=== PATIENT | female | born 1995 | race Caucasian/White ===

== ENCOUNTER 2020-11-12 11:02 | Emergency (ER) | payer OTHER, SELFPAY ==
[2020-11-12 11:08] VITALS: BP 143/87; PULSE 99; RESP 18; TEMP 36.2; O2SAT 99; BMI 34.9
[2020-11-12 11:13] VITALS: BP 134/85; PULSE 80; RESP 18; O2SAT 95
--- NOTE | 2020-11-12 11:13 | ED_ITS ---
HPI - Female Genitourinary General: Chief complaint: Urogenital-Female Stated complaint: UTI/ BLOOD IN URINE Time Seen by Provider: 11/12/20 11:07 History of Present Illness: MD elicited complaint: dysuria, UTI and back pain (lower) Onset (ago): hour(s) (2-3) Location of symptoms: urethra Severity: moderate Female Urogenital Radiation: Suprapubic Severity scale (1-10): 4 Quality of pain: burning, aching and other (sharp with urination) Consistency: constant Urinary symptoms: Dysuria, Frequency, Hematuria and Urgency Exacerbating factors: other (needing to urinate) Relieving factors: other (after urination) Associated symptoms: Reports nausea; Deny abdominal pain or headache(s) Treatment prior to arrival: none Sexual activity: Yes Patient : No Review of Systems General: Reports: 10 or more systems reviewed and unremarkable except in HPI and below Const: Denies: fever(s), chills or diaphoresis Eyes: Denies: blurry vision or eye redness ENMT: Denies: throat pain, dental pain or disequilibrium Card: Denies: chest pain, palpitations or irregular heart rhythm Resp: Denies: dyspnea, productive cough, non-productive cough or wheezing GI: Reports: nausea; Denies: abdominal pain, vomiting, hematemesis, diarrhea or constipation : Reports: difficulty voiding, dysuria, urinary frequency, urinary urgency and hematuria (started last pm without pain); Denies: metrorrhagia Musc: Denies: neck pain, back pain, muscle cramps or muscle weakness Skin/Breast: Denies: rash or pruritus Neuro: Denies: headache(s), weakness in extremities or behavioral changes Psych: Denies: anxiety or depression Darrion/Lymph: Denies: easy bruising Physical Exam Const: COMMON NORMALS: no acute distress, patient oriented x3, healthy appearing, alert and well nourished GENERAL APPEARANCE: cooperative, well kempt, well developed and well hydrated; not comfortable ORIENTATION/CONSCIOUSNESS: Yes awake, Yes oriented to person, Yes oriented to place and Yes oriented to time HENMT: COMMON NORMALS: normocephalic, Normal external nose present and moist oral mucous membranes HEAD & SCALP: normocephalic NOSE: Normal external nose present Eye: COMMON NORMALS: Equal, round and reactive pupils present and EOMs intact bilaterally GENERAL EYE: appearance normal, both eyes and all related structures PUPIL: Yes Equal, round and reactive pupils present Neck/C-Spine: COMMON NORMALS: full ROM and no lymphadenopathy GENERAL: Yes normal visual inspection and Yes trachea midline CERVICAL SPINE: Yes cervical ROM normal Lymph: LYMPHATIC: no lymphadenopathy noted Chest: COMMONS NORMALS: normal inspection of the chest Resp: COMMON NORMALS: normal respiratory effort and clear to auscultation bilaterally AUSCULTATION: clear to auscultation bilaterally Cardio: COMMON NORMALS: regular rhythm, S1 normal heart sound present and S2 normal heart sound present RHYTHM: regular rhythm HEART SOUNDS: S1 normal heart sound present and S2 normal heart sound present GI: COMMON NORMALS: Soft to palpation and non-tender INSPECTION: Yes normal to inspection PALPATION: Yes Soft to palpation : COMMON NORMALS: Yes no CVA tenderness BLADDER/KIDNEY EXAM: Yes no CVA tenderness Back/Pelvis: COMMON NORMALS: no CVA tenderness and thoracic and lumbar spine normal to inspection Extremity: COMMON NORMALS: normal to inspection and capillary refill normal Neuro: COMMON NORMALS: patient oriented x3 and no focal motor deficits SENSORIUM/ORIENTATION: Yes alert, Yes oriented to person, Yes oriented to place and Yes oriented to time Psych: COMMON NORMALS: mental status grossly normal, Normal thought process present and cooperative APPEARANCE: Yes well kempt ACTIVITY/MOTOR BEHAVIOR: Yes appropriate eye contact THOUGHT PROCESS: Normal thought process present Skin: COMMON NORMALS: no rashes or lesions noted and turgor normal GENERAL SKIN EXAM: no rashes or lesions noted and turgor normal Course Vital Signs: Vital signs: Vital Signs Temperature 97.2 F L 11/12/20 11:08 Pulse Rate 70 11/12/20 13:52 Respiratory Rate 16 11/12/20 13:52 Blood Pressure 116/65 11/12/20 13:52 Pulse Oximetry 99 11/12/20 13:52 MDM - Female Lab Data: Labs: Lab Results 11/12/20 11/12/20 Range/Units 11:47 11:47 Urine Color Kendal (Yellow) Urine Appearance Cloudy (CLEAR) Urine pH 8 H (5-7) Ur Specific Gravit y 1.010 (1.005-1.030) Urine Protein 1+ H (Negative) Urine Glucose (UA) Norm (Normal) Urine Ketones Negative (Negative) Urine Blood 3+ H (Negative) Urine Nitrate Positive H (Negative) Urine Bilirubin Neg (Negative) Prot Sulfosalicyli c Acd Positive (Negative) Urine Urobilinogen Norm (Negative) mg/dL Ur Leukocyte Joi ase 2+ H (Negative) Urine RBC >100 H (0-2) /hpf Urine WBC Too numerous to c nt H (0-5) /hpf Ur Squamous Epith Cells 5-10 H (0-5) /hpf Amorphous Sediment Not Reportable Urine Bacteria 2+ H (NONE) /hpf Urine HCG, Qual Negative (Negative) Discharge Plan Discharge Patient Disposition: Home Clinical Impression: Urinary tract infection Qualifiers: Urinary tract infection type: acute cystitis Hematuria presence: with hematuria Qualified Code(s): N30.01 - Acute cystitis with hematuria Condition: Stable Prescriptions: New Bactrim DS 800-160 mg tablet 1 tab PO BID 5 Days Qty: 10 RF: 0 Zofran 4 mg tablet 4 mg PO Q4H Qty: 10 RF: 0 Pyridium 200 mg tablet 200 mg PO Q8H PRN (Reason: urinary pain) Qty: 10 RF: 0 No Action Vitamin B-12 500 mcg Tablet 500 mcg PO DAILY@08 RF: 0 cranberry extract 250 mg Tablet 250 mg PO DAILY@08 RF: 0 28 mg iron- 800 mcg Tablet 1 tab PO DAILY@08 RF: 0 Discharge Orders: Discharge ED (Routine); Ordered 11/12/20 Ordered By: Vandana Aceves Discharge Diet: Usual diet Discharge Activity: Resume usual activity Patient Instructions: Phenazopyridine (By mouth), Urinary Tract Infection in Women (ED), Dysuria (ED) Activity Restrictions/Additional Instructions: Take Bactrim with full glass of water and with food Return to the emergency department if you develop worsening abdominal pain, vomiting or fever Take Bactrim until all gone, even if feeling better Take Pyridium with food, will cause stomach upset/vomiting if taken on empty stomach Coding Level of Care Code ED Analog Ic Design Architect for Kyree Fwjose david Exam Comprehensive
[2020-11-12] MEDS: HYDROcodone-acetaminophen 5-325 mg Tablet 1 TAB PO (11:28)
[2020-11-12] MEDS: ondansetron 4 MG Tablet PO (11:28)
[2020-11-12 12:11] LABS: Urine Appearance Cloudy (CLEAR); Urine Color Amber (Yellow); pH Urine 8 (5-7)
[2020-11-12 12:12] LABS: Glucose Urine UA Norm (Normal); Ketones Urine Negative (Negative); Protein Urine 1+ (Negative)
[2020-11-12 12:13] LABS: Add Urine Culture? Yes; Add Urine Microscopic? YES; Bacteria Urine 2+ /hpf; Bilirubin Urine Neg (Negative); Blood Urine 3+ (Negative); Leukocyte Esterase Urine 2+ (Negative); Nitrate Urine Positive (Negative); RBC Urine >100 /hpf (0-2); Sulfosalicylic Acid Urine Positive (Negative); Urobilinogen Urine Norm (Negative); WBC Urine TOO NUMEROUS TO CNT /hpf (0-5)
[2020-11-12] MEDS: sulfamethoxazole-trimeth DS 160-800 mg Tablet 1 TAB PO (12:51)
[2020-11-12 13:52] VITALS: BP 116/65; PULSE 70; RESP 16; O2SAT 99
== END 2020-11-12 13:54 | disposition home or self-care (01) ==
PROVIDERS: Emergency Provider Nurse Practitioner Family
DX: N30.01 Acute cystitis with hematuria (principal)
CPT/HCPCS: 12345; 81001; 81025; 87077; 87086; 87186; 99281; 99283; Q0162

== ENCOUNTER 2021-12-01 09:41 | Outpatient (CLI) | payer OTHER, SELFPAY ==
[2021-12-01 10:36] LABS: Thyroid Stimulating Hormone 3.95 uIU/mL (0.27-4.20)
[2021-12-02 07:44] LABS: T4 Total 8.5 mcg/dL (5.1-11.9)
[2021-12-04 13:22] LABS: Thyroid Peroxidase Antobodies 1 IU/mL (<9)
[2021-12-04 14:26] LABS: Thyroglobulin AB <1 IU/mL (< or = 1)
== END 2021-12-01 09:42 | disposition home or self-care (01) ==
PROVIDERS: Visit Provider Internal Medicine
DX: E07.9 Disorder of thyroid, unspecified (principal)
CPT/HCPCS: 36415; 84436; 84443; 86376; 86800

== ENCOUNTER → 2021-12-14 08:11 | Outpatient (BNVA) | payer OTHER, SELFPAY | PROVIDERS: Visit Provider Nurse Practitioner Women's Health | DX: N92.6 Irregular menstruation, unspecified (principal) | CPT/HCPCS: 81025 ==

== ENCOUNTER → 2022-01-09 10:38 | Outpatient (BNVA) | payer OTHER, SELFPAY | PROVIDERS: Visit Provider Obstetrics & Gynecology | DX: Z34.90 Encounter for supervision of normal pregnancy, unspecified, unspecified trimester (principal) | CPT/HCPCS: 80053; 80307; 82950; 84315; 84443; 85027; 86592; 86762; 86803; 86850; 86900; 87086; 87340; 87806 ==

== ENCOUNTER → 2022-01-10 08:00 | Outpatient (BNVA) | payer OTHER, SELFPAY | PROVIDERS: Visit Provider Obstetrics & Gynecology | DX: O99.019 Anemia complicating pregnancy, unspecified trimester (principal) | CPT/HCPCS: 82607; 82728; 82746; 83550 ==

== ENCOUNTER → 2022-01-23 09:30 | Outpatient (BNVA) | payer OTHER, SELFPAY | PROVIDERS: Visit Provider Obstetrics & Gynecology | DX: Z34.80 Encounter for supervision of other normal pregnancy, unspecified trimester (principal) | CPT/HCPCS: 84315; 87491; 87591 ==

== ENCOUNTER → 2022-03-22 08:10 | Outpatient (BNVA) | payer OTHER, SELFPAY | PROVIDERS: Visit Provider Obstetrics & Gynecology | DX: Z36.89 Encounter for other specified antenatal screening (principal) | CPT/HCPCS: 76805 ==

== ENCOUNTER → 2022-03-27 08:57 | Outpatient (BNVA) | payer OTHER, SELFPAY | PROVIDERS: Visit Provider Obstetrics & Gynecology | DX: Z34.90 Encounter for supervision of normal pregnancy, unspecified, unspecified trimester (principal) | CPT/HCPCS: 84315; 84443; 85027 ==

== ENCOUNTER → 2022-05-15 09:56 | Outpatient (BNVA) | payer OTHER, SELFPAY | PROVIDERS: Visit Provider Obstetrics & Gynecology | DX: Z34.90 Encounter for supervision of normal pregnancy, unspecified, unspecified trimester (principal) | CPT/HCPCS: 82950; 84315; 84443; 85027; 86850 ==

== ENCOUNTER 2022-05-18 06:02 | Outpatient (CLI) | payer OTHER, SELFPAY ==
--- NOTE | 2022-05-18 06:15 | US_ITS ---
WS: [id number] ULTRASOUND OB FOCUSED HISTORY: O40.9XX0 - Polyhydramnios, unspecified trimester, not tanna... COMPARISON: 03/22/2022 Single intrauterine gestation in vertex position. Cervix is closed at approximately 4 cm in length. P lacenta is posterior and grade 1. heart rate at 122 BPM. Amniotic fluid index: 17.3 cm which is just above the 50th percentile. Largest vertical pocket of amn iotic fluid 5.1 cm. US/US OB limited [id number] IMPRESSION: Normal amniotic fluid index of 17.3 cm.
== END 2022-05-18 06:03 | disposition home or self-care (01) ==
LOC: RAD 06:03
PROVIDERS: Visit Provider Obstetrics & Gynecology
DX: O40.9XX0 Polyhydramnios, unspecified trimester, not applicable or unspecified (principal)
CPT/HCPCS: 76815

== ENCOUNTER 2022-05-28 18:23 | Outpatient (CLI) | payer OTHER, SELFPAY ==
[2022-05-28 18:30] VITALS: BMI 38.3
[2022-05-28 18:38] VITALS: BP 129/63; PULSE 100
[2022-05-28 18:41] VITALS: TEMP 36.4
[2022-05-28 18:58] VITALS: BP 116/66; PULSE 105
[2022-05-28 19:13] VITALS: RESP 16
[2022-05-28 19:18] VITALS: BP 120/70; PULSE 103
[2022-05-28 19:38] VITALS: BP 126/71; PULSE 100
[2022-05-28 19:54] LABS: Bacteria Urine 2+ /hpf; Bilirubin Urine Neg (Negative); Blood Urine Neg (Negative); Glucose Urine UA Norm (Normal); Ketones Urine Negative (Negative); Leukocyte Esterase Urine Negative (Negative); Nitrate Urine Negative (Negative); Protein Urine Neg (Negative); RBC Urine 0-4 /hpf (0-2); Squamous Epithelial Cell Urine 0-4 /hpf (0-5); Urine Appearance Clear (CLEAR); Urine Color Yellow (Yellow); Urobilinogen Urine Norm (Negative); WBC Urine 0-4 /hpf (0-5); pH Urine 6 (5-7)
[2022-05-28 19:55] LABS: Add Urine Culture? Yes
== END 2022-05-28 20:08 | disposition home or self-care (01) ==
LOC: OPOB 18:23 → OBGYN 18:24
PROVIDERS: Visit Provider Obstetrics & Gynecology
DX: O26.899 Other specified pregnancy related conditions, unspecified trimester (principal); Z3A.00 Weeks of gestation of pregnancy not specified; R10.9 Unspecified abdominal pain
CPT/HCPCS: 59025; 81001; 87086; 99211

== ENCOUNTER → 2022-06-25 13:50 | Outpatient (BNVA) | payer OTHER, SELFPAY | PROVIDERS: Visit Provider Obstetrics & Gynecology | DX: Z36.86 Encounter for antenatal screening for cervical length (principal) | CPT/HCPCS: 76816 ==

== ENCOUNTER → 2022-07-10 09:38 | Outpatient (BNVA) | payer OTHER, SELFPAY | PROVIDERS: Visit Provider Obstetrics & Gynecology | DX: Z34.90 Encounter for supervision of normal pregnancy, unspecified, unspecified trimester (principal) | CPT/HCPCS: 84315; 87081 ==

== ENCOUNTER 2022-07-28 07:29 | Inpatient (IN) | payer OTHER, SELFPAY ==
[2022-07-28] VITALS (89 sets, daily range): BP systolic 108–150; BP diastolic 56–104; PULSE 73–115; RESP 15–18; TEMP 35.8–37.4; O2SAT 81–100; BMI 38.8
[2022-07-28 07:34] LABS: Basophils # 0.2 10^3/uL (0.0-0.1); Basophils % 1.4 %; Eosinophils # 0.8 10^3/uL (0.0-0.8); Eosinophils % 6.7 %; Hematocrit 34.6 % (37.0-47.0); Hemoglobin 11.6 g/dL (11.5-15.3); Lymphocytes % 16.3 %; Mean Corpuscular HGB Conc 33.5 g/dL (30.0-36.0); Mean Corpuscular Volume 95.3 fl (81-99); Mean Platelet Volume 9.9 fL (7.4-10.4); Monocytes % 8.5 %; Neutrophils # 7.89 10^3/uL (1.8-7.7); Neutrophils % 65.8 %; Nucleated Red Blood Cells % 0 %; Platelet Count 277 10^3/cmm (130-400); Red Blood Count 3.63 10^6/uL (4.1-5.3); Red Cell Distribution Width 13.3 % (12.1-15.1)
[2022-07-28 08:24] LABS: Estmated Average Glucose 114; Hemoglobin A1C 5.6 % (4.0-6.0)
[2022-07-28] MEDS: miSOPROStol 100 mcg tablet 50 MCG PO (12:41)
--- NOTE | 2022-07-28 13:30 | P.HPUD_ITS ---
Labor & Delivery H&P Update Date of Procedure: July 28, 2022 Date H&P Performed: 07/28/22 Changes to previous documentation: Yeimy is a 27-year-old 000 who is accompanied by her partner, Kirby. This gestation is complicated by class II obesity, hypothyroidism, depression, anxiety disorder, nicotine dependence, chronic anemia, polyhydramnios, and Rh- status. GBS negative. HOSPITAL COURSE She was admitted early this morning after experiencing gross PROM at ~0415. Upon examination she was found to be 3 cm dilated and was deemed to be in early labor however as the morning progressed her uterine contractions were going to be far and few between. Her initial plan was to avoid induction/augmentation and to avoid medicinal pain medication for labor. Since arrival has received 1 dose of oral misoprostol, 50 mcg. Endorses painful uterine contractions, endorses continued loss of fluid without vaginal bleeding, denies headache, denies right upper quadrant pain, denies visual changes, and appreciates regular movement Admission Diagnosis: * IUP 38W4D * PROM * Chronic anemia * Class II obesity * Hypothyroidism * Depression and anxiety disorder * Rh- status Preop diagnosis: labor pain Primary indication for procedure: Status post PROM and is now in early labor. Planned procedure: Anticipate Other information: Category 1 heart tone tracing
[2022-07-28] MEDS: fentaNYL 50 mcg/mL INJ 2mL 100 MCG IVP (14:07)
[2022-07-28] MEDS: lactated ringers 1,000 ML 999 ML IV (14:10)
[2022-07-28] MEDS: metoclopramide 5 mg/mL SDV 2 mL 10 MG IV (14:10)
--- NOTE | 2022-07-28 15:05 | ANES.PREANE2 ---
Pre-Anesthetic Assessment Height/Weight: Height 1.7 m Weight 112.491 kg Temp Pulse Resp BP Pulse Ox O2 Del Method 98.1 F 90 18 140/75 99 07/28/22 13:46 07/28/22 11:40 07/28/22 14:07 07/28/22 11:40 07/28/22 06:53 07/28/22 06:50 Preop Diagnosis: labor pain epidural Familial anesthetic complications: none Was Beta Glory taken within 24 hours: N/A Was Clonidine taken within 24 hours: N/A Social Alcohol (history not current) and Tobacco (history not current) Exam alert, oriented x 3, clear to auscultation bilaterally and regular rate & rhythm Airway Submandibular: within normal limits Cervical ROM: within normal limits Mallampati: Class II Dentition: full Pulmonary None reported CV/HEM Anemia None reported Hepatic None reported GI Gastroesophageal Reflux Disease Metabolic Thyroid Disease Neuropsych Anxiety and Depression Anesthetic Plan ASA status: 2 Anesthesia: Regional (specify below) Risk of > 500 ml blood loss (7ml/kg in children): No Medications/Allergies Home Medications Medication Instructions Recorded Confirmed Last Taken Type vit no.95-ferrous 1 tab PO DAILY@08 11/12/20 07/28/22 07/27/22 History fumarate 28 mg-folic acid 800 mcg tablet () levothyroxine 25 mcg tablet 25 mcg PO DAILY #90 tabs 12/01/21 07/28/22 07/28/22 03:30 Rx famotidine 20 mg tablet (Pepcid) 20 mg PO DAILY 01/09/22 07/24/22 05/28/22 10:00 History ferrous sulfate 325 mg (65 mg 325 mg PO BID #90 tabs 03/28/22 07/28/22 07/27/22 Rx iron) tablet,delayed release sertraline 25 mg tablet (Zoloft) 25 mg PO DAILY 04/18/22 07/28/22 07/27/22 History buspirone 5 mg tablet 5 mg PO BID 05/15/22 07/28/22 07/27/22 13:00 History vitamin c PO BID 06/05/22 07/24/22 Unknown History Allergies Allergy/AdvReac Type Severity Reaction Status Date / Time Penicillins Allergy Family Verified 07/28/22 07:31 allergy---Keflex causes nausea ondansetron [From Zofran] AdvReac Severe migranes Verified 07/28/22 07:31 erythromycin base AdvReac Vomiting Verified 07/28/22 07:31 Current Medications Generic Name Dose Route Start Last Admin Trade Name Lacey PRN Reason Stop Dose Admin Fentanyl 100 mcg 07/28/22 06:44 07/28/22 14:07 Fentanyl 50 Mcg/Ml Inj 2ml IVP 100 mcg Q1H PRN Administration SEVERE PAIN PFSH Anesthesia Medical History Acute pancreatitis Episode of acute pancreatitis at the age of 17 of undiagnosed origin. She has recovered completely and has no deficits Anxiety and depression Reports being symptomatic since teenage years. Last took medication in 2017. Does not have a therapist Hypothyroid Diagnosed in November 2021 and is managed by Dr. Ruff-endocrinology No pertinent past medical history Denies diabetes, asthma, hypertension, seizures, DVT/PE PCP: None Surgical History History of tonsillectomy At the age of 16 Family History Father No problems noted. Mother Diabetes Breast cancer Diagnosed at age 35 ER and [place] [facility] Hypercholesteremia Hypertension Grandmother Uterine cancer Maternal- diagnosed in her 50s Family/Other Breast cancer Maternal aunt, diagnosed in her early 40s Mat great aunt Heart disease paternal uncle Thyroid disease maternal aunt Denies family history of Colon cancer Ovarian cancer Stroke Social History Smoking and tobacco status: former smoker Female Reproductive History : 1 Data Anesthesia : 07/28/22 07:10 Short CBC 07/28/22 Range/Units 07:10 WBC 12.0 H (4.0-10.0) 10^3/uL Hgb 11.6 (11.5-15.3) g/dL Hct 34.6 L (37.0-47.0) % MCV 95.3 (81-99) fl Plt Count 277 (130-400) 10^3/cmm Neut % (Auto) 65.8 % Neut # (Auto) 7.89 H (1.8-7.7) 10^3/uL Cardiac Studies: No Data to Display
--- NOTE | 2022-07-28 15:35 | P.ANES_ITS ---
Documented by User: José Miguel Méndez CRNA 07/28/22 15:35 Anesthesia Procedures Procedure/Date: 07/28/22 epidural Procedure Narrative: epidural complete, bolus given, epidural pump initiated with SHOP SERVICE TECHNICIAN education given, vitals taken during procedure using OBIX system and satisfactory throughout, patient admits to decrease pain, report of procedure to OB RN Epidural: Time Out Performed: Yes Consents Signed: Procedure Consent Consent: requested by attending/covering physician, from patient, risks and benefits reviewed and patient agrees to proceed Lumbar Level: L3-L4 Epidural position: sitting Epidural procedure: sterile prep of area, 1% lido anju to numb the area (3 mL), 18 g needle, negative for paresthesia passed, neg for paresthesia, test dose given, 1.5% xylocaine 1:200k epi (5 mL), 0.2% Ropivacaine bolus ml (5 mL), placed PCEA, no systemic response, sterile dressing applied, L.U.D. no apparent complications and 0.2% Ropiavacaine @ mls/hr (13 mL/hr) Documented by User: Tony Curtis 07/29/22 08:41 Anesthesia Procedures Procedure/Date: 07/29/22
--- NOTE | 2022-07-28 16:14 | P.PN_ITS ---
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 This gestation is complicated by class II obesity, hypothyroidism, depression, anxiety disorder, nicotine dependence, chronic anemia, polyhydramnios, and Rh- status. GBS negative. HOSPITAL COURSE She was admitted early this morning after experiencing gross PROM at ~0415. Upon examination she was found to be 3 cm dilated and was deemed to be in early labor however as the morning progressed her uterine contractions were going to be far and few between. Her initial plan was to avoid induction/augmentation and to avoid medicinal pain medication for labor. Since arrival has received 1 dose of oral misoprostol, 50 mcg and 1 dose of 100 mcg of fentanyl. She has had epidural placed without incident. Comfortable with uterine contractions, endorses continued loss of fluid with scant vaginal bleeding, denies headache, denies right upper quadrant pain, denies visual changes, and appreciates regular movement. Labor: Pain Control: epidural Dilation (cm): 5 (4-5 cm) Station: - 1 Amniotic Membrane Status: Ruptured Monitor Mode: External Contraction Frequency: 3 (1-3 Qmin) Contraction Pattern: Regular Status: Category I Vitals/I&O/Wt Last Vital Signs Temp 98.1 F 07/28/22 13:46 Pulse 100 07/28/22 15:31 Resp 18 07/28/22 14:07 BP 136/76 07/28/22 15:31 Pulse Ox 100 07/28/22 15:30 O2 Del Method 07/28/22 06:50 Weight last 48 hrs Weight 248 lb Physical Exam Const: COMMON NORMALS: no acute distress, patient oriented x3 and alert HENMT: COMMON NORMALS: normocephalic, atraumatic, hearing grossly normal bilaterally, moist oral mucous membranes, dentition normal and gingiva normal HEAD & SCALP: normocephalic and atraumatic Eye: COMMON NORMALS: EOMs intact bilaterally Neck/C-Spine: COMMON NORMALS: full ROM and supple Lymph: LYMPHATIC: no lymphadenopathy noted Resp: COMMON NORMALS: normal respiratory effort, No retractions and No use of accessory muscles Cardio: COMMON NORMALS: regular rate and regular rhythm RATE: regular rate RHYTHM: regular rhythm : COMMON NORMALS: Yes no CVA tenderness BLADDER/KIDNEY EXAM: Yes no CVA tenderness UTERUS PALPATION: No Uterus tender and Yes Other OB uterine findings (4-5 cm / 80% / -1 / mid / soft / Cephalic) Back/Pelvis: COMMON NORMALS: no CVA tenderness Extremity: COMMON NORMALS: normal to inspection, no clubbing, cyanosis or edema and no calf tenderness; negative for no pedal edema Neuro: COMMON NORMALS: patient oriented x3 SENSORIUM/ORIENTATION: Yes alert Psych: COMMON NORMALS: mental status grossly normal, Normal thought process present, cooperative, normal affect, speech normal and activity/motor behavior normal SPEECH: Yes normal speech THOUGHT PROCESS: Normal thought process present Skin: COMMON NORMALS: no rashes or lesions noted GENERAL SKIN EXAM: no rashes or lesions noted Data : 07/28/22 07:10 A&P Assessment and plan (1) with 38 completed weeks gestation: Status: Acute (2) Anemia affecting in third trimester: Consider IV iron in the period. Status: Acute (3) Obesity affecting , antepartum: Status: Acute (4) Rh negative, antepartum: Collect cord blood at delivery. Status: Acute (5) Hypothyroid: Status: Acute (6) Mixed anxiety and depressive disorder: Status: Acute (7) Personal history of nicotine dependence: Status: Acute (8) Alteration in comfort associated with uterine contractions: Continue to titrate epidural. Status: Acute (9) PROM (premature rupture of membranes): Now in early labor status post 1 dose of oral misoprostol. * Considering Pitocin augmentation if the contraction pattern becomes an adequate or labor progress is halted. Status: Acute Attestations Medical Necessity Statement*: SROM, management of labor, augmentation of labor, primipara with anxiety and depression disorder Coding Level of Care Code Acute Front Office Clerk for Chg Fwd Diagnoses with 38 completed weeks gestation Z3A.38 Anemia affecting in third trimester O99.013 Obesity affecting , antepartum O99.210 Rh negative, antepartum O26.899; Z67.91 Hypothyroid E03.9 Mixed anxiety and depressive disorder F41.8 Personal history of nicotine dependence Z87.891 Alteration in comfort associated with uterine contractions N85.8 PROM (premature rupture of membranes) O42.90
[2022-07-28] MEDS: oxytocin 30 UNIT/500 ML BAG IV (18:08)
--- NOTE | 2022-07-28 20:18 | PM.OBGYPN ---
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 This gestation is complicated by class II obesity, hypothyroidism, depression, anxiety disorder, nicotine dependence, chronic anemia, polyhydramnios, and Rh- status.? GBS negative. The couple is expecting a girl, Vanessa Forte. HOSPITAL COURSE She was admitted early this morning after experiencing gross PROM at ~0415.? Upon examination she was found to be 3 cm dilated and was deemed to be in early labor however as the morning progressed her uterine contractions were going to be far and few between.? Her initial plan was to avoid induction/augmentation and to avoid medicinal pain medication for labor. Since arrival has received 1 dose of oral misoprostol, 50 mcg and 1 dose of 100 mcg of fentanyl.? She has had epidural placed without incident. Currently undergoing Pitocin augmentation which is infusing at 2 milliunits/min. Augmentation was initiated secondary to slow progress into active labor. I received a call at 1945 that there was a deceleration and upon checking her it was communicated that she was anterior lip so appeared to make rapid progress. Comfortable with uterine contractions albeit experiencing significant pressure, endorses continued loss of fluid with light vaginal bleeding, denies headache, denies right upper quadrant pain, denies visual changes, and appreciates regular movement. Labor: Dilation (cm): 9 (Anterior lip) Station: -2 Amniotic Membrane Status: Leaking Monitor Mode: External Contraction Frequency: 3 (1-3 Qmin) Contraction Pattern: Regular Status: Category I (albeit rarely Category II) Vitals/I&O/Wt Last Vital Signs Temp 99.3 F 07/28/22 18:05 Pulse 97 07/28/22 20:11 Resp 18 07/28/22 14:07 BP 139/79 07/28/22 20:02 Pulse Ox 98 07/28/22 20:11 O2 Del Method 07/28/22 06:50 07/28/22 07/28/22 07/28/22 06:59 14:59 22:59 Intake Total 1000 / 1000 Balance 1000 / 1000 Weight last 48 hrs Weight 248 lb Physical Exam Const: COMMON NORMALS: no acute distress and alert : UTERUS PALPATION: Yes Other OB uterine findings (Anterior lip/100%/0 to +1/anterior/cephalic) AMNIOTIC FLUID: clear and no meconium Neuro: SENSORIUM/ORIENTATION: Yes alert Psych: COMMON NORMALS: mental status grossly normal, Normal thought process present, cooperative, normal affect, speech normal and activity/motor behavior normal SPEECH: Yes normal speech THOUGHT PROCESS: Normal thought process present Urinary Catheter Management: Queen: Cath Placed During This Visit: yes Reason for Continuing Indwelling Catheter: Required Immobilization for Trauma or Surgery or Anesthesia Urinary Catheter Date of Insertion: 07/28/22 Urinary Catheter Time of Insertion: 16:45 Data : 07/28/22 07:10 A&P Assessment and plan (1) PROM (premature rupture of membranes): Continue to titrate Pitocin augmentation Status: Acute (2) Alteration in comfort associated with uterine contractions: Continue to titrate epidural and encourage position changes Status: Acute (3) Mixed anxiety and depressive disorder: Status: Acute (4) with 38 completed weeks gestation: Status: Acute (5) Anemia affecting in third trimester: Considering Venofer (IV iron) Status: Acute (6) Class II obesity: Status: Acute Attestations Medical Necessity Statement*: Labor management, PROM, care, anemia Coding Level of Care Code Acute Flatwork Finisher for Chg Fwd Diagnoses PROM (premature rupture of membranes) O42.90 Alteration in comfort associated with uterine contractions N85.8 Mixed anxiety and depressive disorder F41.8 with 38 completed weeks gestation Z3A.38 Anemia affecting in third trimester O99.013 Class II obesity E66.9
[2022-07-28] MEDS: dextrose 5%-lactated ringers 1,000 ML 125 ML IV (20:45)
[2022-07-28] MEDS: metoclopramide 5 mg/mL SDV 2 mL 10 MG IVP (21:15)
--- NOTE | 2022-07-28 23:17 | P.PCNOB_ITS ---
Delivery Note: Date of delivery: July 28, 2022 Pre-delivery diagnoses: * IUP 38W4D * Premature rupture of membranes (PROM) * Chronic anemia * Class II obesity * Hypothyroidism * Depression and anxiety disorder Post-delivery diagnoses: * Status post term without complications * Chronic anemia * Class II obesity * Hypothyroidism * Depression and anxiety disorder Procedure: Term normal spontaneous vaginal delivery () Delivering Physician: Matilda Eng MD, FACOG Findings: Viable female infant, Vanessa Forte. * scores: 8 at one minute and 9 at five minutes * Weight: 3220 g ( 8 lbs 3 oz ) * Delivered on 07/28/2022 at 2224 Pre-Delivery Course: Yeimy is a 27-year-old 001 who presented to the hospital with an IUP 38W4D. She is accompanied by her partner,Ellyn.? This gestation is complicated by class II obesity, hypothyroidism, depression, anxiety disorder, nicotine dependence, chronic anemia, polyhydramnios, and Rh- status.? GBS negative. The couple was expecting a girl,Citlali Forte. HOSPITAL COURSE She was admitted early this morning after experiencing gross PROM at ~0415.? Upon examination she was found to be 3 cm dilated and was deemed to be in early labor however as the morning progressed her uterine contractions were going to be far and few between.? Aftr arrival to L & D received epidural without incident, had Pitocin augmentation which was initiated secondary to slow progress into active labor.? Delivery: Upon achieving complete dilation, +3 station, and experiencing extreme pressure patient was placed in modified Dez position. She was instructed on pushing and she pushed very effectively. With coaching the patient pushed and brought the 's head to the perineum. The perineum appeared adequate. The patient pushed again and the head crowned and the MIRTHA position. The anterior shoulder was delivered with a downward motion, the posterior shoulder delivered with an upward motion, and the remainder of the infant's body delivered without any difficulty. Terminal meconium was appreciated. cried spontaneously and was placed on the mother's abdomen and resuscitated by the nurse. Delayed cord clamping was performed. Cord blood was obtained. Pitocin was administered and the placenta delivered spontaneously and was found to be intact and complete with a centrally inserted three-vessel cord. Post-Delivery Status: [place] infant, Vanessa Forte, is rooming in with her parents. Breast-feeding anticipated. History History History 1 Term 1 0 Miscarriages/Ectopic 0 Living Children 0 A&P Assessment and plan (1) Class II obesity: Status: Acute (2) (normal spontaneous vaginal delivery): Status: Acute (3) Liveborn infant as result of : Status: Acute (4) Anemia affecting in third trimester: Prescribe IV iron (Venofer) Status: Acute (5) Care and examination immediately after delivery: Initiate routine care Status: Acute Coding Level of Care Code Acute Beam Racker for Chg Fwd Diagnoses Class II obesity E66.9 (normal spontaneous vaginal delivery) O80 Liveborn infant as result of Z37.0 Anemia affecting in third trimester O99.013 Care and examination immediately after delivery Z39.0
[2022-07-29] VITALS (20 sets, daily range): BP systolic 125–161; BP diastolic 62–85; PULSE 61–90; RESP 16–18; TEMP 36.7–36.9; O2SAT 99
[2022-07-29] MEDS: lidocaine 2% INJ 20 mL INJECTION (02:42)
--- NOTE | 2022-07-29 08:42 | ANE.PACU2 ---
Inpatient post-anesthesia follow up: Airway intact: Yes Vital signs: Temperature 98.5 F Pulse Rate 80 Respiratory Rate 17 Blood Pressure 139/83 Pulse Oximetry 98 Oxygen Delivery Me thod Room Air Oxygen Flow Rate Fraction of Inspir ed Oxygen Hydration adequate: Yes Nausea and vomiting: No Pain level: 2 Mental status: Baseline
--- NOTE | 2022-07-29 08:56 | P.PN_ITS ---
Subjective Subjective: Yeimy is a 27-year-old 001 who presented to the hospital with an IUP 38W4D.? She is accompanied by her partner,?Kirby.? This gestation is complicated by class II obesity, hypothyroidism, depression, anxiety disorder, nicotine dependence, chronic anemia, polyhydramnios, and Rh- status.? GBS negative. The couple was expecting a girl,Citlali Forte. HOSPITAL COURSE She was admitted level vial marker on 07/28/2022 after experiencing gross PROM at ~0415.? Upon examination she was found to be 3 cm dilated. After arrival to L & D she received an epidural without incident, had Pitocin augmentation which was initiated secondary to slow progress into active labor.?Ultimately, went on to have a term normal spontaneous vaginal delivery () without complications. Viable female infant,Citlali Forte. * scores:?8 at one minute and 9 at five minutes * Weight:?3220 g ( 8 lbs 3 oz ) * Delivered on 07/28/2022 at 2224 Vitals/I&O/Wt Selected Entries 07/29/22 06:49 07/29/22 07:16 07/29/22 07:46 Temperature Pulse Rate 64 61 69 Blood Pressure 130/85 132/82 161/79 07/29/22 08:16 07/29/22 09:16 07/29/22 09:41 Temperature Pulse Rate 80 76 82 Blood Pressure 139/83 129/67 136/80 07/28/22 21:11 Temperature 98.5 F Pulse Rate Blood Pressure 07/28/22 07/29/22 07/29/22 22:59 06:59 14:59 Intake Total 1000 / 1000 Output Total 950 / 950 Balance 1000 / 1000 -950 / 50 Weight last 48 hrs Weight 248 lb Physical Exam Const: COMMON NORMALS: no acute distress, patient oriented x3, no limitations, healthy appearing and alert HENMT: COMMON NORMALS: normocephalic and atraumatic HEAD & SCALP: normocephalic and atraumatic Chest: COMMONS NORMALS: normal inspection of the chest and normal inspection of the breasts Resp: COMMON NORMALS: normal respiratory effort, No retractions and No use of accessory muscles Cardio: COMMON NORMALS: regular rate and regular rhythm RATE: regular rate RHYTHM: regular rhythm GI: COMMON NORMALS: Soft to palpation and non-tender PALPATION: Yes Soft to palpation : COMMON NORMALS: Yes no CVA tenderness BLADDER/KIDNEY EXAM: Yes no CVA tenderness Back/Pelvis: COMMON NORMALS: no CVA tenderness OTHER: Firm uterine fundus at the umbilicus Extremity: COMMON NORMALS: normal to inspection, full ROM, capillary refill normal and no calf tenderness Neuro: COMMON NORMALS: patient oriented x3 SENSORIUM/ORIENTATION: Yes alert Psych: COMMON NORMALS: mental status grossly normal, Normal thought process present, cooperative, normal affect, speech normal and activity/motor behavior normal SPEECH: Yes normal speech THOUGHT PROCESS: Normal thought process present Skin: COMMON NORMALS: no rashes or lesions noted and turgor normal GENERAL SKIN EXAM: no rashes or lesions noted and turgor normal Urinary Catheter Management: Queen: Cath Placed During This Visit: yes, but has since been removed by the nurse Reason for Continuing Indwelling Catheter: Decision to DC Catheter Urinary Catheter Date of Insertion: 07/28/22 Urinary Catheter Time of Insertion: 16:45 Date Urinary Catheter Removed: 07/28/22 Time Urinary Catheter Discontinued: 21:43 Data : 07/28/22 07:10 A&P Assessment and plan (1) Care and examination immediately after delivery: * Continue routine care * Anticipate discharge tomorrow Status: Acute (2) (normal spontaneous vaginal delivery): Status: Acute (3) Class II obesity: Status: Acute Attestations Medical Necessity Statement*: day #1 Coding Level of Care Code Acute Home Health Outreach Coordinator for Chg Fwd Diagnoses Care and examination immediately after delivery Z39.0 (normal spontaneous vaginal delivery) O80 Class II obesity E66.9
[2022-07-29 13:19] LABS: Hematocrit 30.8 % (37.0-47.0); Hemoglobin 10.3 g/dL (11.5-15.3); Mean Corpuscular HGB Conc 33.4 g/dL (30.0-36.0); Mean Corpuscular Hemoglobin 32.1 pg (28.0-34.0); Mean Platelet Volume 9.8 fL (7.4-10.4); Platelet Count 245 10^3/cmm (130-400); Red Blood Count 3.21 10^6/uL (4.1-5.3); Red Cell Distribution Width 13.5 % (12.1-15.1); White Blood Count 19.2 10^3/uL (4.0-10.0)
[2022-07-30 04:10] VITALS: BP 138/89; PULSE 67; TEMP 36.6; O2SAT 98
--- NOTE | 2022-07-30 07:03 | P.DS_ITS ---
Discharge Providers Date of Admission: 07/28/22 07:29 Date of Discharge: July 30, 2022 Attending Provider at Admission: Matilda Eng MD Attending Provider at Discharge: Matilda Eng MD Diagnoses at Discharge Discharge Diagnosis (1) Care and examination immediately after delivery: Details from hospital stay: Yeimy is a 27-year-old 001 PPD #2 who presented to the hospital with an IUP 38W4D.? She is accompanied by her partner,?Kirby.? This gestation is complicated by class II obesity, hypothyroidism, depression, anxiety disorder, nicotine dependence, chronic anemia, polyhydramnios, and Rh- status.? GBS negative. The couple was expecting a girl,Citlali Forte. HOSPITAL COURSE She was admitted screening unit registered nurse on 07/28/2022 after experiencing gross PROM at ~0415.? Upon examination she was found to be 3 cm dilated. After arrival to L & D she received an epidural without incident, had Pitocin augmentation which was initiated secondary to slow progress into active labor.?Ultimately, went on to have a term normal spontaneous vaginal delivery () without complications. Viable female infant,Citlali Forte who is doing well and is breast-feeding. * scores:?8 at one minute and 9 at five minutes * Weight:?3220 g ( 8 lbs 3 oz ) * Delivered on 07/28/2022 at 2224 Today, reports light vaginal bleeding/lochia, denies headache, denies right upper quadrant pain, denies visual changes, is ambulating without any dizziness, is tolerating p.o. intake, and is voiding without any difficulty. Despite history of depression and anxiety disorder Yeimy has no emotional concerns at this time. She has asked for discharge today and has met all milestones. Status: Acute (2) (normal spontaneous vaginal delivery): Status: Acute (3) Class II obesity: Status: Acute Reason for Visit Reason for Visit: Possible ROM Physical Exam Const: COMMON NORMALS: no acute distress, patient oriented x3, healthy appearing and alert HENMT: COMMON NORMALS: normocephalic and atraumatic HEAD & SCALP: normoce phalic and atraumatic Eye: COMMON NORMALS: EOMs intact bilaterally Resp: COMMON NORMALS: normal respiratory effort and No use of accessory muscles GI: COMMON NORMALS: Soft to palpation and non-tender PALPATION: Yes Soft to palpation : BLADDER/KIDNEY EXAM: No CVA tenderness UTERUS PALPATION: No Uterus tender and Yes Other OB uterine findings (Firm fundus 2 fingerbreadths below the umbilicus) Back/Pelvis: GENERAL BACK: No CVA tenderness Extremity: COMMON NORMALS: normal to inspection, full ROM and no calf tenderness Neuro: COMMON NORMALS: patient oriented x3 SENSORIUM/ORIENTATION: Yes alert Psych: COMMON NORMALS: mental status grossly normal, cooperative, normal affect, speech normal and activity/motor behavior normal SPEECH: Yes normal speech Skin: COMMON NORMALS: no rashes or lesions noted and turgor normal GENERAL SKIN EXAM: no rashes or lesions noted and turgor normal Urinary Catheter Management: Queen: Cath Placed During This Visit: yes, but has since been removed by the nurse Reason for Continuing Indwelling Catheter: Decision to DC Catheter Urinary Catheter Date of Insertion: 07/28/22 Urinary Catheter Time of Insertion: 16:45 Date Urinary Catheter Removed: 07/28/22 Time Urinary Catheter Discontinued: 21:43 Discharge Data Studies Completed and Pending Laboratory Results WBC 19.2 10^3/uL (4.0-10.0) H 07/29/22 13:05 RBC 3.21 10^6/uL (4.1-5.3) L 07/29/22 13:05 Hgb 10.3 g/dL (11.5-15.3) L 07/29/22 13:05 Hct 30.8 % (37.0-47.0) L 07/29/22 13:05 MCV 96.0 fl (81-99) 07/29/22 13:05 MCH 32.1 pg (28.0-34.0) 07/29/22 13:05 MCHC 33.4 g/dL (30.0-36.0) 07/29/22 13:05 RDW 13.5 % (12.1-15.1) 07/29/22 13:05 Plt Count 245 10^3/cmm (130-400) 07/29/22 13:05 MPV 9.8 fL (7.4-10.4) 07/29/22 13:05 Neut % (Auto) 65.8 % 07/28/22 07:10 Lymph % (Auto) 16.3 % 07/28/22 07:10 [place] % (Auto) 8.5 % 07/28/22 07:10 Eos % (Auto) 6.7 % 07/28/22 07:10 Baso % (Auto) 1.4 % 07/28/22 07:10 Neut # (Auto) 7.89 10^3/uL (1.8-7.7) H 07/28/22 07:10 Lymph # (Auto) 2.0 10^3/uL (0.8-4.8) 07/28/22 07:10 [place] # (Auto) 1.0 10^3/uL (0.2-0.9) H 07/28/22 07:10 Eos # (Auto) 0.8 10^3/uL (0.0-0.8) 07/28/22 07:10 Baso # (Auto) 0.2 10^3/uL (0.0-0.1) H 07/28/22 07:10 Nucleated RBC % (auto) 0 % 07/28/22 07:10 Nucleated RBCs # 0.0 /100WBC 07/28/22 07:10 Estimat Average Glucose 114 07/28/22 07:10 Hemoglobin A1c 5.6 % (4.0-6.0) 07/28/22 07:10 Procedures Performed Normal spontaneous vaginal delivery () Vitals Last Vital Signs Temp 97.9 F 07/30/22 04:10 Pulse 67 07/30/22 04:10 Resp 16 07/29/22 21:13 BP 138/89 07/30/22 04:10 Pulse Ox 98 07/30/22 04:10 O2 Del Method 07/30/22 04:10 Discharge Plan Discharge Patient Disposition: Home Prescriptions: New ibuprofen 800 mg Tablet 800 mg PO TID Qty: 60 1RF -U 106.5-1 mg Capsule 1 cap PO DAILY Qty: 90 4RF Lanolin (HPA) 100 % Cream 1 applic topical PRN PRN (Reason: Dryness) Qty: 1 11RF acetaminophen 325 mg Tablet 650 mg PO Q8H MDD 3.9 g per day PRN (Reason: mild pain for temp >100.4.) Qty: 60 1RF Continued famotidine [Pepcid] 20 mg tablet 20 mg PO DAILY sertraline [Zoloft] 25 mg tablet 25 mg PO DAILY buspirone 5 mg tablet 5 mg PO BID vitamin c PO BID levothyroxine 25 mcg tablet 25 mcg PO DAILY Qty: 90 3RF Rx Instructions: Take one tablet by mouth in AM 30-60 minutes before eating or taking medications. ferrous sulfate 325 mg (65 mg iron) tablet,delayed release (DR/EC) 325 mg PO BID Qty: 90 2RF PNV cmb#95-ferrous fumarate-FA [] 28 mg iron- 800 mcg Tablet 1 tab PO DAILY@08 Discharge Orders: Discharge Order (Routine); Ordered 07/30/22 Ordered By: Matilda Eng Discharge Activity: Resume usual activity and Increase activity as tolerated Patient Instructions: Opioid Safety Activity Restrictions/Additional Instructions: Pelvic rest x6 weeks Return to clinic in 2 weeks for screening of blues Discharge Attestations Time Spent in Discharge Care*: greater than 30 min Quality Metrics Clinical Quality Measures [ No reported AMI, CVA or VTE this stay] Coding Level of Care Code Acute Chg FW DC note Diagnoses Care and examination immediately after delivery Z39.0 (normal spontaneous vaginal delivery) O80 Class II obesity E66.9
[2022-07-30 10:03] VITALS: BP 139/84; PULSE 92; RESP 16; TEMP 36.7
== END 2022-07-30 10:30 | disposition home or self-care (01) | DRG 807 ==
LOC: OPOB 07:49 → OBGYN 07:49
PROVIDERS: Admitting Provider Obstetrics & Gynecology; Visit Provider Obstetrics & Gynecology
DX: O42.02 Full-term premature rupture of membranes, onset of labor within 24 hours of rupture (principal); Z37.0 Single live birth; O99.214 Obesity complicating childbirth; O99.284 Endocrine, nutritional and metabolic diseases complicating childbirth; E03.9 Hypothyroidism, unspecified; O99.344 Other mental disorders complicating childbirth; F41.9 Anxiety disorder, unspecified; F32.A Depression, unspecified; O99.334 Smoking (tobacco) complicating childbirth; F17.200 Nicotine dependence, unspecified, uncomplicated; O99.02 Anemia complicating childbirth; D64.9 Anemia, unspecified; O40.9XX0 Polyhydramnios, unspecified trimester, not applicable or unspecified; Z3A.38 38 weeks gestation of pregnancy; Z67.91 Unspecified blood type, Rh negative; O77.0 Labor and delivery complicated by meconium in amniotic fluid
CPT/HCPCS: 36415; 51702; 59409; 83036; 83986; 85025; 85027; J2765; J2795; J3010

== ENCOUNTER → 2022-09-24 10:00 | Outpatient (BNVA) | payer OTHER, SELFPAY | PROVIDERS: Visit Provider Obstetrics & Gynecology | DX: Z01.419 Encounter for gynecological examination (general) (routine) without abnormal findings (principal); Z12.4 Encounter for screening for malignant neoplasm of cervix | CPT/HCPCS: 88175 ==

== ENCOUNTER 2022-10-04 08:35 | Outpatient (CLI) | payer OTHER, SELFPAY ==
--- NOTE | 2022-10-04 08:39 | MM_ITS ---
WS: [id number] SCREENING DIGITAL BREAST TOMOSYNTHESIS MAMMOGRAM WITH CAD HISTORY: Z12.39 - Encounter for other screening for malignant neoplasm, family history. Mother diagno sed with breast cancer 37 years of age. COMPARISON: None available. Bilateral CC and MLO with tomosynthesis and synthetic mammography submitted. Computer aided detection analyzed. Breast composition: The breasts are heterogeneously dense, which may obscure small masses. Lobulated mass in the posterior LEFT breast near 3-4 o'clock measures 18 x 22 x 24 mm. Mass of increased densit y with lobulated margins. There is an additional mass measuring 18 x 14 x 15 mm in the anterior LEFT breast near 8:00. The RIGHT breast is negative. MM/[place] [id number] IMPRESSION: BI-RADS: 0-Incomplete: Need additional imaging evaluation FOLLOW UP: Need Additional Imaging Recommendation: LEFT breast ultrasound, limited. Ultrasound directed posterior 3-4 o'clock and anterior 8:00.
== END 2022-10-04 08:36 | disposition home or self-care (01) ==
LOC: RAD 08:35
PROVIDERS: Visit Provider Obstetrics & Gynecology
DX: Z12.31 Encounter for screening mammogram for malignant neoplasm of breast (principal)
CPT/HCPCS: 77063; 77067

== ENCOUNTER 2022-10-22 12:58 | Outpatient (CLI) | payer OTHER, SELFPAY ==
--- NOTE | 2022-10-22 13:08 | US_ITS ---
WS: [id number] ULTRASOUND LEFT BREAST HISTORY: R92.2 - Inconclusive mammogram COMPARISON: Mammogram 10/04/2022 TECHNIQUE: 2-D and Doppler. There are 2 well-circumscribed hypoechoic masses identified within the LEFT breast which correspond t o the mammographic abnormalities. The larger mass at 3:00, 5 cm the nipple is very hypoechoic and con tain central calcification. Mass measures 1.6 x 2.2 x 0.9 cm. Smaller mass at 8:00, 3 cm to the nippl e is ovoid measuring 1.0 x 1.8 x 0.8 cm. US/US breast LT limited* [id number] IMPRESSION: BI-RADS: 2-Benign FOLLOW-UP: See Report 1. 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 They have benign features. To be certain of the diagnosis ultrasound-guided b iopsy can be obtained of each mass to confirm benignity. 2. No mammographic follow-up necessary.
== END 2022-10-22 12:59 | disposition home or self-care (01) ==
LOC: RAD 12:59
PROVIDERS: Visit Provider Obstetrics & Gynecology
DX: R92.2 Inconclusive mammogram (principal)
CPT/HCPCS: 76642

== ENCOUNTER → 2023-05-06 11:28 | Outpatient (BNVA) | payer OTHER, SELFPAY | PROVIDERS: Visit Provider Obstetrics & Gynecology | DX: Z34.90 Encounter for supervision of normal pregnancy, unspecified, unspecified trimester (principal) | CPT/HCPCS: 81025 ==

== ENCOUNTER → 2023-06-10 11:25 | Outpatient (BNVA) | payer OTHER, SELFPAY | PROVIDERS: Visit Provider Obstetrics & Gynecology | DX: Z32.00 Encounter for pregnancy test, result unknown (principal) | CPT/HCPCS: 84702 ==

== ENCOUNTER → 2023-06-26 08:55 | Outpatient (BNVA) | payer OTHER, SELFPAY | PROVIDERS: Visit Provider Nurse Practitioner Women's Health | DX: Z36.87 Encounter for antenatal screening for uncertain dates (principal) | CPT/HCPCS: 76801 ==

== ENCOUNTER 2023-06-26 11:14 | Outpatient (CLI) | payer OTHER, SELFPAY ==
[2023-06-26 11:50] LABS: Hematocrit 36.4 % (37.0-47.0); Hemoglobin 12.1 g/dL (11.5-15.3); Mean Corpuscular HGB Conc 33.2 g/dL (30.0-36.0); Mean Corpuscular Hemoglobin 30.8 pg (28.0-34.0); Mean Corpuscular Volume 92.6 fl (81-99); Mean Platelet Volume 9.2 fL (7.4-10.4); Platelet Count 332 10^3/cmm (130-400); Red Blood Count 3.93 10^6/uL (4.1-5.3); Red Cell Distribution Width 13.3 % (12.1-15.1); White Blood Count 10.9 10^3/uL (4.0-10.0)
[2023-06-26 12:23] LABS: Free T4 Free Thyroxine 1.29 ng/dL (0.82-1.77); Rubella IgG 46.9 IU/mL (0.0-10.0); Thyroid Stimulating Hormone 1.01 uIU/mL (0.27-4.20)
[2023-06-26 12:24] LABS: Hepatitis B Surface Antigen Non-Reactive (Nonreactive)
[2023-06-26 12:26] LABS: Estmated Average Glucose 103; Hemoglobin A1C 5.2 % (4.0-6.0)
[2023-06-26 15:43] LABS: Rapid Plasma Reagin Syphilis Nonreactive (Nonreactive)
[2023-06-26 16:01] LABS: Hepatitis C Virus Antibody Non-Reactive (Nonreactive)
[2023-06-26 16:13] LABS: HIV 1 & 2 Antibody Non-Reactive (Non-Reactiv); HIV 1 & 2 Antigen Non-Reactive (Non-Reactiv)
== END 2023-06-26 11:15 | disposition home or self-care (01) ==
PROVIDERS: Visit Provider Nurse Practitioner Women's Health
DX: O99.019 Anemia complicating pregnancy, unspecified trimester (principal); D64.9 Anemia, unspecified; O99.280 Endocrine, nutritional and metabolic diseases complicating pregnancy, unspecified trimester; E03.9 Hypothyroidism, unspecified; Z3A.00 Weeks of gestation of pregnancy not specified
CPT/HCPCS: 36415; 80307; 83036; 84315; 84439; 84443; 85027; 86592; 86762; 86803; 86850; 86900; 87086; 87340; 87806

== ENCOUNTER → 2023-07-08 13:00 | Outpatient (BNVA) | payer OTHER, SELFPAY | PROVIDERS: Visit Provider Obstetrics & Gynecology | DX: Z34.90 Encounter for supervision of normal pregnancy, unspecified, unspecified trimester (principal) | CPT/HCPCS: 84315; 87491; 87591 ==

== ENCOUNTER 2023-07-30 09:51 | Outpatient (CLI) | payer OTHER, SELFPAY ==
[2023-07-30 10:26] LABS: Glucose Challenge 50gm Dose 134 mg/dL (85-140)
== END 2023-07-30 09:52 | disposition home or self-care (01) ==
PROVIDERS: PCP Nurse Practitioner Women's Health; Visit Provider Nurse Practitioner Women's Health
DX: O99.210 Obesity complicating pregnancy, unspecified trimester (principal); Z3A.00 Weeks of gestation of pregnancy not specified
CPT/HCPCS: 82950; 84315

== ENCOUNTER → 2023-08-26 12:22 | Outpatient (BNVA) | payer OTHER, SELFPAY | PROVIDERS: PCP Nurse Practitioner Women's Health; Visit Provider Nurse Practitioner Women's Health | DX: Z34.80 Encounter for supervision of other normal pregnancy, unspecified trimester (principal) | CPT/HCPCS: 76805 ==

== ENCOUNTER 2023-09-24 09:28 | Outpatient (CLI) | payer OTHER, SELFPAY ==
[2023-09-24 09:55] LABS: Glucose Tolerance 1 Hour Gest 104 mg/dL (70-139)
== END 2023-09-24 09:29 | disposition home or self-care (01) ==
LOC: LAB 09:29
PROVIDERS: Visit Provider Nurse Practitioner Women's Health
DX: Z34.80 Encounter for supervision of other normal pregnancy, unspecified trimester (principal)
CPT/HCPCS: 36415; 82950; 84315

== ENCOUNTER → 2023-10-21 09:27 | Outpatient (BNVA) | payer OTHER, SELFPAY | PROVIDERS: Visit Provider Obstetrics & Gynecology | DX: O26.899 Other specified pregnancy related conditions, unspecified trimester; Z67.91 Unspecified blood type, Rh negative; Z3A.28 28 weeks gestation of pregnancy | CPT/HCPCS: 84315; 85025; 86850 ==

== ENCOUNTER → 2023-10-31 07:44 | Outpatient (BNVA) | payer OTHER, SELFPAY | PROVIDERS: Visit Provider Obstetrics & Gynecology | DX: Z34.80 Encounter for supervision of other normal pregnancy, unspecified trimester (principal) | CPT/HCPCS: 76816 ==

== ENCOUNTER → 2023-12-06 13:20 | Outpatient (BNVA) | payer OTHER, SELFPAY | PROVIDERS: Visit Provider Obstetrics & Gynecology | DX: Z34.80 Encounter for supervision of other normal pregnancy, unspecified trimester (principal) | CPT/HCPCS: 76816 ==

== ENCOUNTER → 2023-12-16 09:00 | Outpatient (BNVA) | payer OTHER, SELFPAY | PROVIDERS: Visit Provider Obstetrics & Gynecology | DX: Z34.80 Encounter for supervision of other normal pregnancy, unspecified trimester (principal) | CPT/HCPCS: 84315; 87081; 87086 ==

== ENCOUNTER → 2023-12-20 08:28 | Outpatient (BNVA) | payer OTHER, SELFPAY | PROVIDERS: Visit Provider Obstetrics & Gynecology | DX: Z34.80 Encounter for supervision of other normal pregnancy, unspecified trimester (principal) | CPT/HCPCS: 76816 ==

== ENCOUNTER 2024-01-01 14:38 | Outpatient (CLI) | payer OTHER, SELFPAY ==
[2024-01-01] VITALS (7 sets, daily range): BP systolic 120–135; BP diastolic 66–70; PULSE 86–101; TEMP 36.3; BMI 41.8
[2024-01-01] MEDS: lactated ringers 1,000 ML 999 ML IV (16:00)
[2024-01-01] MEDS: metoclopramide 5 mg/mL SDV 2 mL 10 MG IVP (16:01)
== END 2024-01-01 17:16 | disposition home or self-care (01) ==
LOC: OPOB 14:39 → OBGYN 14:39
PROVIDERS: Visit Provider Obstetrics & Gynecology
DX: O26.899 Other specified pregnancy related conditions, unspecified trimester (principal); Z3A.00 Weeks of gestation of pregnancy not specified; R11.0 Nausea; R19.7 Diarrhea, unspecified; R55 Syncope and collapse
CPT/HCPCS: 59025; 96374; 99211; J2765; J7120

== ENCOUNTER 2024-01-13 03:09 | Inpatient (IN) | payer OTHER, SELFPAY ==
[2024-01-12 23:30] VITALS: BMI 39.9
[2024-01-12 23:51] VITALS: BP 124/73; PULSE 68
[2024-01-13] VITALS (92 sets, daily range): BP systolic 103–146; BP diastolic 56–89; PULSE 53–102; RESP 15–17; TEMP 36.1–37.3; O2SAT 91–100; BMI 39.9
[2024-01-13 00:32] LABS: Basophils % 0.4 %; Eosinophils # 0.2 10^3/uL (0.0-0.8); Eosinophils % 1.8 %; Hematocrit 30.1 % (36-47); Lymphocytes # 2.5 10^3/uL (0.8-4.8); Lymphocytes % 22.9 %; Mean Corpuscular HGB Conc 33.9 g/dL (30-55); Mean Corpuscular Hemoglobin 31.1 pg (27-33); Mean Corpuscular Volume 91.8 fl (85-98); Mean Platelet Volume 9.4 fL (7.4-10.4); Neutrophils # 7.07 10^3/uL (1.8-7.7); Neutrophils % 65.2 %; Nucleated Red Blood Cells % 0 %; Platelet Count 281 10^3/cmm (157-399); Red Blood Count 3.28 10^6/uL (3.85-5.65); Red Cell Distribution Width 13.7 % (12.1-15.1); White Blood Count 10.86 10^3/uL (3.29-11.43)
[2024-01-13] MEDS: lactated ringers 1,000 ML 999 ML IV (00:36)
[2024-01-13] MEDS: ROPivacaine syringe 100 MG/50 ML SYRINGE 10 MG EPIDURAL ×6 (02:00→19:06)
--- NOTE | 2024-01-13 02:02 | ANES.PREANE2 ---
Pre-Anesthetic Assessment Height/Weight: Height 1.68 m Pulse BP Pulse Ox 81 131/61 99 01/13/24 01:55 01/13/24 01:55 01/13/24 01:55 Preop Diagnosis: IUP Active Labor Labor Epidural Familial anesthetic complications: none Was Beta Glory taken within 24 hours: N/A Was Clonidine taken within 24 hours: N/A Last intake: meal 1929 liquid- current Social No alcohol and No tobacco Exam alert, oriented x 3, clear to auscultation bilaterally and regular rate & rhythm Airway Submandibular: within normal limits Cervical ROM: within normal limits Mallampati: Class II Dentition: full History/ROS No significant history except as noted Pulmonary None reported CV/HEM None reported None reported Hepatic None reported GI Gastroesophageal Reflux Disease Metabolic Morbid Obesity and Thyroid Disease [facility] [place] None reported Neuropsych Anxiety and Depression Anesthetic Plan ASA status: 2 Anesthesia: Regional (specify below) Other: Labor Epidural Medications/Allergies Home Medications Medication Instructions Recorded Confirmed Last Taken Type vit no.95-ferrous 1 tab PO DAILY@08 11/12/20 01/08/24 07/27/22 History fumarate 28 mg-folic acid 800 mcg tablet () vitamin c PO BID 06/05/22 01/08/24 Unknown History ferrous sulfate 325 mg (65 mg 325 mg PO DAILY 07/30/23 01/08/24 Unknown History iron) tablet,delayed release buspirone 5 mg tablet 5 mg PO BID #180 tabs 10/07/23 01/08/24 Unknown Rx famotidine 20 mg tablet (Pepcid) 20 mg PO DAILY #90 tabs 10/07/23 01/08/24 Unknown Rx sertraline 25 mg tablet (Zoloft) 25 mg PO DAILY #90 tabs 10/07/23 01/08/24 Unknown Rx Allergies Allergy/AdvReac Type Severity Reaction Status Date / Time Penicillins Allergy Family Verified 01/13/24 02:09 allergy---Keflex causes nausea ondansetron [From Zofran] AdvReac Severe migranes Verified 01/13/24 02:09 erythromycin base AdvReac Vomiting Verified 01/13/24 02:09 Current Medications Generic Name Dose Route Start Last Admin Trade Name Freq PRN Reason Stop Dose Admin Lactated Ringer's 1,000 mls @ 999 mls/hr 01/13/24 00:24 01/13/24 00:36 Lactated Ringers IV 999 mls/hr .Q1H1M PRN Administration See label comments PFSH Anesthesia Medical History GERD (gastroesophageal reflux disease) Generalized anxiety disorder Moderate major depression Anemia long history of anemia; worsened in ; managed with oral iron as of 06/26/23 Family history of breast cancer in female Acute pancreatitis Episode of acute pancreatitis at the age of 17 of undiagnosed origin. She has recovered completely and has no deficits Hypothyroid Diagnosed in November 2021 and is managed by Dr. Ruff-endocrinology no medication stable. Surgical History History of tonsillectomy At the age of 16 Family History Father No problems noted. Mother Diabetes Breast cancer Diagnosed at age 35 ER and [place] POSITIVE Hypercholesteremia Hypertension Grandmother Uterine cancer Maternal- diagnosed in her 50s Family/Other Breast cancer Maternal aunt, diagnosed in her early 40s Mat great aunt Heart disease paternal uncle Thyroid disease maternal aunt Other Dementia Psychiatric illness Denies family history of Liver disease Colon cancer Ovarian cancer CAD (coronary artery disease) Aneurysm Autoimmune disease Chronic kidney disease (CKD) Bleeding disorder Lung disease Stroke Social History Smoking and tobacco/nicotine status: former use of tobacco/nicotine Quit status (tobacco/nicotine): has quit using Alcohol intake: never Lives independently: Yes Marital status: Data Anesthesia 01/13/24 00:12 Short CBC 01/13/24 Range/Units 00:12 WBC 10.86 (3.29-11.43) 10^3/uL Hgb 10.20 L (11.27-16.99) g/dL Hct 30.1 L (36-47) % MCV 91.8 (85-98) fl Plt Count 281 (157-399) 10^3/cmm Neut % (Auto) 65.2 % Neut # (Auto) 7.07 (1.8-7.7) 10^3/uL Blood Bank 01/13/24 00:12 Blood Type A Negative Rho(D) Type Negative Antibody Screen Negative Cardiac Studies: No Data to Display Anesthesia Procedures Epidural Time Out Performed: Yes Consent: from patient, risks and benefits reviewed and patient agrees to proceed Lumbar Level: L3-L4 Epidural position: sitting Epidural procedure: sterile prep of area, 1% lidocaine to numb the area, negative for paresthesia passed, test dose given, 1.5% xylocaine 1:200k epi, placed PCEA, no systemic response, sterile dressing applied, L.U.D. no apparent complications and 0.2% Ropiavacaine @ mls/hr (10) Additional Comments: BRUCE at 7.5cm on second attempt catheter threaded to 14cm 100 mcg of Fentanyl given via epidural. Remaining lidocaine and saline given via epidural.
[2024-01-13] MEDS: dextrose 5%-lactated ringers 1,000 ML 125 ML IV ×3 (03:25→19:06)
--- NOTE | 2024-01-13 03:25 | PM.OBGYHP ---
Providers/Chief Complaint Admitting Physician: Jacob Garza MD Primary LIQUID SUGAR FORTIFIER: Benitez Mobley MD Chief Complaint: contractions HPI LIQUID SUGAR FORTIFIER History of Present Illness 28 y.o. EDC January 12, 2024 At 40 w 1 d Presented to L&D c/o painful uterine contractions No fluid leakage, bleeding + active movements No complications h/o x one Present Details : 2 Para: 1 Labs Rubella: Immune RPR: Negative GBS: Negative Medications/Allergies Home Medications Medication Instructions Recorded Confirmed Last Taken Type vit no.95-ferrous 1 tab PO DAILY@08 11/12/20 01/13/24 01/12/24 History fumarate 28 mg-folic acid 800 mcg tablet () ferrous sulfate 325 mg (65 mg 325 mg PO DAILY 07/30/23 01/13/24 01/12/24 History iron) tablet,delayed release buspirone 5 mg tablet 5 mg PO BID #180 tabs 10/07/23 01/13/24 01/12/24 Rx sertraline 25 mg tablet (Zoloft) 25 mg PO DAILY #90 tabs 10/07/23 01/13/24 01/12/24 Rx Allergies Allergy/AdvReac Type Severity Reaction Status Date / Time Penicillins Allergy Family Verified 01/13/24 02:09 allergy---Keflex causes nausea ondansetron [From Zofran] AdvReac Severe migranes Verified 01/13/24 02:09 erythromycin base AdvReac Vomiting Verified 01/13/24 02:09 PFSH LIQUID SUGAR FORTIFIER PFSH: Medical History GERD (gastroesophageal reflux disease) Generalized anxiety disorder Moderate major depression Anemia long history of anemia; worsened in ; managed with oral iron as of 06/26/23 Family history of breast cancer in female Acute pancreatitis Episode of acute pancreatitis at the age of 17 of undiagnosed origin. She has recovered completely and has no deficits Hypothyroid Diagnosed in November 2021 and is managed by Dr. Ruff-endocrinology no medication stable. Surgical History History of tonsillectomy At the age of 16 Family History Father No problems noted. Mother Diabetes Breast cancer Diagnosed at age 35 ER and [place] POSITIVE Hypercholesteremia Hypertension Grandmother Uterine cancer Maternal- diagnosed in her 50s Family/Other Breast cancer Maternal aunt, diagnosed in her early 40s Mat great aunt Heart disease paternal uncle Thyroid disease maternal aunt Other Dementia Psychiatric illness Denies family history of Liver disease Colon cancer Ovarian cancer CAD (coronary artery disease) Aneurysm Autoimmune disease Chronic kidney disease (CKD) Bleeding disorder Lung disease Stroke Social History Smoking and tobacco/nicotine status: former use of tobacco/nicotine Quit status (tobacco/nicotine): has quit using Alcohol intake: never Lives independently: Yes Marital status: History History History 2 Term 1 0 Miscarriages/Ectopic 0 Living Children 1 Care ALE Calculator Estimated Delivery Date Method Current WG Current Estimate 01/12/24 Ultrasound #1 40w 1d Other Estimates 01/04/24 LMP (Certain) 41w 2d Specific Issues/Plans DESIRES STERILIZATION?? uncertain Rh negative blood Anemia--currently using iron daily and vitamin at opposite time Anxiety/depression--restarted BuSpar and Zoloft at 12 weeks Obesity--early GCT-134; repeat at 24wks macrosomia Vitals/I&O/Wt Last Vital Signs Pulse 61 01/13/24 06:08 BP 129/65 01/13/24 06:08 Pulse Ox 99 01/13/24 01:55 O2 Del Method Room Air 01/13/24 00:37 01/12/24 01/12/24 01/13/24 14:59 22:59 06:59 Output Total 100 / 100 Balance -100 / -100 Weight last 48 hrs Weight 255 lb Physical Exam Narrative: Weight 255 lbs; 5?5? Comfortable, awake, alert HEENT: normal Lungs: clear Cor: RRR Abd: nontender FH 37 cm, cephalic FHTs normal Cervix: 6 cm / 50% / -2 station / cephalic Ext: no edema External monitor: + regular UCs heart tracing good variability, + accelerations Urinary Catheter Management: Queen: Cath Placed During This Visit: yes Urinary Catheter Date of Insertion: 01/13/24 Urinary Catheter Time of Insertion: 00:35 Data 01/13/24 00:12 Results Labs OB ([facility]): Obstetrics US 12/20/23 Blood Type A Negative 01/13/24 Antibody Screen Negative 01/13/24 Hct 30.1 % (36-47) L 01/13/24 Hgb 10.20 g/dL (11.27-16.99) L 01/13/24 Rho(D) Type Negative 01/13/24 Plt Count 281 10^3/cmm (157-399) 01/13/24 Hep Bs Antigen Non-reactive (Nonreactive) 06/26/23 Hepatitis C Antibody Non-reactive (Nonreactive) 06/26/23 Rubella IgG Antibody 46.9 IU/mL (0.0-10.0) H 06/26/23 RPR Nonreactive (Nonreactive) 06/26/23 HIV 1&2 Ab & HIV 1 Ag Non-reactive (Non-Reactiv) 06/26/23 TSH 1.01 uIU/mL (0.27-4.20) 06/26/23 Free T4 1.29 ng/dL (0.82-1.77) 06/26/23 C.trachomatis RNA (TMA) Not detected (NOT DETECTED) 07/08/23 N.gonorrhoeae RNA (TMA) Not detected (NOT DETECTED) 07/08/23 T. vaginalis Amp RNA Not detected (NOT DETECTED) 07/08/23 Chlamydia/GC Comment See note 07/08/23 Glucose 1 Hr 50 gm 134 mg/dL (85-140) 07/30/23 Gest Glucose Tolerance 104 mg/dL (70-139) 09/24/23 Hemoglobin A1c 5.2 % (4.0-6.0) 06/26/23 Ser , Semi-Qnt 791297.00 mIU/mL 06/10/23 HCG, Qual Negative (Negative) 05/06/23 Urine Opiates Screen Negative ng/mL (Negative) 06/26/23 Ur Barbiturates Screen Negative ng/mL (Negative) 06/26/23 Ur Phencyclidine Scrn Negative ng/mL (Negative) 06/26/23 Ur Amphetamines Screen Negative ng/mL (Negative) 06/26/23 U Benzodiazepines Scrn Negative ng/mL (Negative) 06/26/23 Urine Cocaine Screen Negative ng/mL (Negative) 06/26/23 U Marijuana (THC) Screen Negative ng/mL (Negative) 06/26/23 Micro Urine Specimen 12/16/23 Pap Smear Interpret See note 09/24/22 OB Labs GBS 12-16-23 negative A&P Assessment and plan (1) Active labor at term: 40 w 1 d fetus reassuring Active labor Plan admit Expectant management h/o x one (2) Rh negative, antepartum: Attestations Medical Necessity Statement*: patient at term with active labor Coding Level of Care Code Acute Code for Chg Fwd Diagnoses Active labor at term Rh negative, antepartum O26.899; Z67.91 Time Spent (min) 60
[2024-01-13] MEDS: oxytocin 30 UNIT/500 ML BAG IV (07:30)
--- NOTE | 2024-01-13 15:50 | P.PN_ITS ---
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 Subjective: Interval history: fetus reassuring comfortable with epidural Cervix: 7 cm / 90 / -2 AROM, clear fluid continue pitocin Labor: Station: -3 Amniotic Membrane Status: Ruptured Monitor Mode: Palpation Contraction Pattern: Regular Status: Category I Vitals/I&O/Wt Last Vital Signs Temp 97.0 F L 01/13/24 16:15 Pulse 63 01/13/24 16:10 Resp 17 01/13/24 10:05 BP 122/64 01/13/24 16:10 Pulse Ox 99 01/13/24 01:55 O2 Del Method Room Air 01/13/24 00:37 01/13/24 01/13/24 01/13/24 06:59 14:59 22:59 Intake Total 50 / 50 1100.417 / 1100.417 15.5 / 1115.917 Output Total 100 / 100 900 / 900 Balance -50 / -50 200.417 / 200.417 15.5 / 215.917 Weight last 48 hrs Weight 255 lb Weight 255 lb Physical Exam 2 Urinary Catheter Management: Queen: Cath Placed During This Visit: yes Reason for Continuing Indwelling Catheter: Other Urinary Catheter Date of Insertion: 01/13/24 Urinary Catheter Time of Insertion: 00:35 Data 01/13/24 00:12 A&P Assessment and plan (1) Active labor at term: Attestations 2 Medical Necessity Statement*: patient with active labor at term. Coding Level of Care Code Acute Code for Chg Fwd Diagnoses Active labor at term Time Spent (min) 20
[2024-01-13] MEDS: metoclopramide 5 mg/mL SDV 2 mL 10 MG IV (16:56)
[2024-01-13] MEDS: oxytocin 30 UNIT/500 ML BAG 600 UNIT IV (20:18)
--- NOTE | 2024-01-13 20:40 | P.PN_ITS ---
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 Subjective: Interval history: , vigorous female infant Cord gases and blood obtained Normal placenta and cord No episiotomy or lacerations EBL: 300 cc No complications Labor: Station: +1 Amniotic Membrane Status: Ruptured Monitor Mode: External Contraction Pattern: Regular Status: Category I Vitals/I&O/Wt Last Vital Signs Temp 97.5 F L 01/13/24 19:09 Pulse 75 01/13/24 21:28 Resp 17 01/13/24 10:05 BP 120/68 01/13/24 21:28 Pulse Ox 100 01/13/24 21:27 O2 Del Method Room Air 01/13/24 00:37 01/13/24 01/13/24 01/13/24 06:59 14:59 22:59 Intake Total 50 / 50 1100.417 / 9496.254 6717.0 / 2224.417 Output Total 100 / 100 900 / 900 Balance -50 / -50 200.417 / 722.980 0303.0 / 1324.417 Weight last 48 hrs Weight 255 lb Weight 255 lb Physical Exam 2 Urinary Catheter Management: Queen: Cath Placed During This Visit: yes Reason for Continuing Indwelling Catheter: Acute Urinary Retention or Obstruction Urinary Catheter Date of Insertion: 01/13/24 Urinary Catheter Time of Insertion: 00:35 Data 01/13/24 00:12 A&P Assessment and plan (1) Vaginal delivery: Attestations 2 Medical Necessity Statement*: patient at term, admitted in active labor, s/p vaginal delivery Coding Level of Care Code Acute Code for Chg Fwd Diagnoses Vaginal delivery O80 Time Spent (min) 45
--- NOTE | 2024-01-13 20:55 | PM.DELIVERY ---
Delivery Note: Date of delivery: January 13, 2024 Pre-delivery diagnoses: 40 w 1 d active labor Post-delivery diagnoses: 40 w 1 d active labor vaginal delivery Procedure: labor augmentation vaginal delivery Op report anesthesia: Epidural Delivering Physician: Jacob Garza MD Estimated blood loss (mL): 300 Findings: , vigorous female infant Cord gases and blood obtained Normal placenta and cord No episiotomy or lacerations EBL: 300 cc No complications Pre-Delivery Course: normal labor course Delivery: vaginal Post-Delivery Status: good History History History 2 Term 1 0 Miscarriages/Ectopic 0 Living Children 1 A&P Assessment and plan (1) Vaginal delivery: care Coding Level of Care Code Acute Code for Chg Fwd Diagnoses Vaginal delivery O80 Time Spent (min) 45
[2024-01-14 00:38] VITALS: BP 133/75; PULSE 75; RESP 15; TEMP 37.3; O2SAT 99
[2024-01-14 10:00] VITALS: BP 119/76; PULSE 77; RESP 16; TEMP 36.8; O2SAT 97
[2024-01-14 10:00] LABS: Hematocrit 26.7 % (36-47); Mean Corpuscular Hemoglobin 31.5 pg (27-33); Mean Corpuscular Volume 95.7 fl (85-98); Mean Platelet Volume 9.6 fL (7.4-10.4); Platelet Count 244 10^3/cmm (157-399); Red Blood Count 2.79 10^6/uL (3.85-5.65); Red Cell Distribution Width 13.9 % (12.1-15.1); White Blood Count 13.98 10^3/uL (3.29-11.43)
--- NOTE | 2024-01-14 11:50 | PM.OBGYPN ---
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 fundus firm Ext: no edema; nontender Urinary Catheter Management: Queen: Cath Placed During This Visit: yes, but has since been removed by the nurse Reason for Continuing Indwelling Catheter: Decision to DC Catheter Urinary Catheter Date of Insertion: 01/13/24 Urinary Catheter Time of Insertion: 00:35 Date Urinary Catheter Removed: 01/13/24 Time Urinary Catheter Discontinued: 20:10 Data 01/14/24 09:47 A&P Assessment and plan (1) Status post vaginal delivery: PPD #1 doing well normal course continue care Attestations Medical Necessity Statement*: patient s/p vaginal delivery, for care Coding Level of Care Code Acute Code for Chg Fwd Diagnoses Status post vaginal delivery Time Spent (min) 20
[2024-01-14 16:00] VITALS: BP 120/66; PULSE 61; RESP 16; TEMP 36.6; O2SAT 98
[2024-01-14 22:00] VITALS: BP 117/70; PULSE 77; RESP 18; TEMP 36.6; O2SAT 98
[2024-01-15 04:00] VITALS: BP 106/64; PULSE 63; RESP 18; TEMP 36.8; O2SAT 97
--- NOTE | 2024-01-15 07:01 | ANE.PACU2 ---
Inpatient post-anesthesia follow up: Airway intact: Yes Vital signs: Temperature 98.2 F Pulse Rate 63 Respiratory Rate 18 Blood Pressure 106/64 Pulse Oximetry 97 Oxygen Delivery Me thod Room Air Oxygen Flow Rate Fraction of Inspir ed Oxygen Hydration adequate: Yes Nausea and vomiting: No Pain level: 1 Mental status: Baseline Epidural Start/End: Epidural Start Date: 01/13/24 Epidural Start Time: 01:15 Epidural End Date: 01/13/24 Epidural End Time: 21:23
--- NOTE | 2024-01-15 10:45 | PM.OBGYPN ---
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 fundus firm Ext: no edema; nontender Urinary Catheter Management: Queen: Cath Placed During This Visit: yes, but has since been removed by the nurse Reason for Continuing Indwelling Catheter: Decision to DC Catheter Urinary Catheter Date of Insertion: 01/13/24 Urinary Catheter Time of Insertion: 00:35 Date Urinary Catheter Removed: 01/13/24 Time Urinary Catheter Discontinued: 20:10 Data 01/14/24 09:47 A&P Assessment and plan (1) Status post vaginal delivery: PPD #2 doing well discharge to home today instructions and precautions given call/return if fever, chills, headache, blurry vision, nausea, vomiting, abdominal pain; vaginal bleeding or discharge; shortness of breath, chest pain, leg pains or swelling; inability to void, perineal pain or swelling; feelings of depression or mood changes; thoughts of suicide or harming others; inability to care for baby. f/u in 6 weeks or PRN Attestations Medical Necessity Statement*: patient s/p vaginal delivery, plan discharge to home today Coding Level of Care Code Acute Code for Chg Fwd Diagnoses Status post vaginal delivery Time Spent (min) 20
[2024-01-15 10:48] VITALS: BP 110/73; PULSE 67; RESP 17; TEMP 36.8
--- NOTE | 2024-01-15 10:55 | P.DS_ITS ---
Discharge Providers FRONT DESK ADMINISTRATOR Date of Admission: 01/13/24 03:09 Date of Discharge: 01/15/24 Attending Provider at Admission: Jacob Garza MD Attending Provider at Discharge: Jacob Garza MD Consults: none Primary Care Provider: Jacob Garza MD Diagnoses at Discharge Discharge Diagnosis (1) Status post vaginal delivery: Details from hospital stay: 28 y.o. admitted at 40 w 1 d with active labor patient progressed to vaginal delivery without any complications no episiotomy or perineal lacerations patient did well was discharged to home on second day Status: Acute Reason for Visit Reason for Visit: contractions Brief History: 28 y.o. admitted at 40 w 1 d with active labor Hospital Course Hospital Course 28 y.o. admitted at 40 w 1 d with active labor patient progressed to vaginal delivery without any complications no episiotomy or perineal lacerations patient did well was discharged to home on second day Information Peripartum Data: Infant Delivery Method: Vaginal Laceration description: None Episiotomy description: None complications: none Physical Exam Narrative: afebrile, VS normal comfortable, awake, alert Abd: soft, nontender. fundus firm Ext: no edema; nontender Urinary Catheter Management: Queen: Cath Placed During This Visit: yes, but has since been removed by the nurse Reason for Continuing Indwelling Catheter: Decision to DC Catheter Urinary Catheter Date of Insertion: 01/13/24 Urinary Catheter Time of Insertion: 00:35 Date Urinary Catheter Removed: 01/13/24 Time Urinary Catheter Discontinued: 20:10 History History History 2 Term 1 0 Miscarriages/Ectopic 0 Living Children 1 Discharge Data Studies Completed and Pending Laboratory Results WBC 13.98 10^3/uL (3.29-11.43) H 01/14/24 09:47 RBC 2.79 10^6/uL (3.85-5.65) L 01/14/24 09:47 Hgb 8.80 g/dL (11.27-16.99) L 01/14/24 09:47 Hct 26.7 % (36-47) L 01/14/24 09:47 MCV 95.7 fl (85-98) 01/14/24 09:47 MCH 31.5 pg (27-33) 01/14/24 09:47 MCHC 33.0 g/dL (30-55) 01/14/24 09:47 RDW 13.9 % (12.1-15.1) 01/14/24 09:47 Plt Count 244 10^3/cmm (157-399) 01/14/24 09:47 MPV 9.6 fL (7.4-10.4) 01/14/24 09:47 Neut % (Auto) 65.2 % 01/13/24 00:12 Lymph % (Auto) 22.9 % 01/13/24 00:12 [place] % (Auto) 9.0 % 01/13/24 00:12 Eos % (Auto) 1.8 % 01/13/24 00:12 Baso % (Auto) 0.4 % 01/13/24 00:12 Neut # (Auto) 7.07 10^3/uL (1.8-7.7) 01/13/24 00:12 Lymph # (Auto) 2.5 10^3/uL (0.8-4.8) 01/13/24 00:12 [place] # (Auto) 1.0 10^3/uL (0.2-0.9) H 01/13/24 00:12 Eos # (Auto) 0.2 10^3/uL (0.0-0.8) 01/13/24 00:12 Baso # (Auto) 0.0 10^3/uL (0.0-0.1) 01/13/24 00:12 Nucleated RBC % (auto) 0 % 01/13/24 00:12 Nucleated RBCs # 0.0 /100WBC 01/13/24 00:12 Blood Type A Negative 01/13/24 00:12 Rho(D) Type Negative 01/13/24 00:12 Antibody Screen Negative 01/13/24 00:12 Procedures Performed vaginal delivery Vitals Last Vital Signs Temp 98.2 F 01/15/24 12:55 Pulse 76 01/15/24 12:55 Resp 17 01/15/24 12:55 BP 118/66 01/15/24 12:55 Pulse Ox 97 01/15/24 04:00 O2 Del Method Room Air 01/15/24 12:55 Results Labs OB ([facility]): Obstetrics US 12/20/23 Blood Type A Negative 01/13/24 Antibody Screen Negative 01/13/24 Hct 26.7 % (36-47) L 01/14/24 Hgb 8.80 g/dL (11.27-16.99) L 01/14/24 Rho(D) Type Negative 01/13/24 Plt Count 244 10^3/cmm (157-399) 01/14/24 Hep Bs Antigen Non-reactive (Nonreactive) 06/26/23 Hepatitis C Antibody Non-reactive (Nonreactive) 06/26/23 Rubella IgG Antibody 46.9 IU/mL (0.0-10.0) H 06/26/23 RPR Nonreactive (Nonreactive) 06/26/23 HIV 1&2 Ab & HIV 1 Ag Non-reactive (Non-Reactiv) 06/26/23 TSH 1.01 uIU/mL (0.27-4.20) 06/26/23 Free T4 1.29 ng/dL (0.82-1.77) 06/26/23 C.trachomatis RNA (TMA) Not detected (NOT DETECTED) N.gonorrhoeae RNA (TMA) Not detected (NOT DETECTED) T. vaginalis Amp RNA Not detected (NOT DETECTED) 07/08/23 Chlamydia/GC Comment See note 07/08/23 Glucose 1 Hr 50 gm 134 mg/dL (85-140) 07/30/23 Gest Glucose Tolerance 104 mg/dL (70-139) 09/24/23 Hemoglobin A1c 5.2 % (4.0-6.0) 06/26/23 Ser , Semi-Qnt 533454.00 mIU/mL 06/10/23 HCG, Qual Negative (Negative) 05/06/23 Urine Opiates Screen Negative ng/mL (Negative) 06/26/23 Ur Barbiturates Screen Negative ng/mL (Negative) 06/26/23 Ur Phencyclidine Scrn Negative ng/mL (Negative) 06/26/23 Ur Amphetamines Screen Negative ng/mL (Negative) 06/26/23 U Benzodiazepines Scrn Negative ng/mL (Negative) 06/26/23 Urine Cocaine Screen Negative ng/mL (Negative) 06/26/23 U Marijuana (THC) Screen Negative ng/mL (Negative) 06/26/23 Micro Urine Specimen 12/16/23 Pap Smear Interpret See note 09/24/22 Discharge Plan Discharge Patient Disposition: Home Condition: Stable Prescriptions: Continued ferrous sulfate 325 mg (65 mg iron) tablet,delayed release (DR/EC) 325 mg PO DAILY buspirone 5 mg tablet 5 mg PO BID Qty: 180 1RF sertraline [Zoloft] 25 mg tablet 25 mg PO DAILY Qty: 90 1RF PNV cmb#95-ferrous fumarate-FA [] 28 mg iron- 800 mcg Tablet 1 tab PO DAILY@08 Discharge Orders: Discharge Order (Routine); Ordered 01/15/24 Ordered By: Jacob Garza Referrals: Jacob Garza MD [Physician] - 02/17/24 12:45 pm (Your appointment with Dr. Gazra is scheduled for SaturdayFebruary 16 @12:45pm. ) Discharge Diet: Usual diet Discharge Activity: Increase activity as tolerated Patient Instructions: Depression (GEN), Perineal Care (GEN), Bleeding (GEN), Preeclampsia and Eclampsia After Delivery (GEN), OB Discharge Report, OB Food/Drug Interaction Guide, OB Home Care Instructions, OB Care at Home, OB Speak Up, Opioid Safety, OB Home Care, OB Proud Parent Packet, OB Vaginal Deliveries - [facility], Abnormal Bleeding Discharge Attestations FRONT DESK ADMINISTRATOR Time Spent in Discharge Care*: less than 30 min Coding Level of Care Code Acute Code for Chg Fwd Diagnoses Status post vaginal delivery Time Spent (min) 20
[2024-01-15 12:55] VITALS: BP 118/66; PULSE 76; RESP 17; TEMP 36.8
== END 2024-01-15 12:55 | disposition home or self-care (01) | DRG 807 ==
LOC: OPOB 03:09 → OBGYN 03:09
PROVIDERS: Admitting Provider Obstetrics & Gynecology; Visit Provider Obstetrics & Gynecology
DX: O48.0 Post-term pregnancy (principal); Z37.0 Single live birth; Z3A.40 40 weeks gestation of pregnancy; O99.02 Anemia complicating childbirth; D64.9 Anemia, unspecified; Z87.891 Personal history of nicotine dependence; O99.214 Obesity complicating childbirth; E66.9 Obesity, unspecified; O36.63X0 Maternal care for excessive fetal growth, third trimester, not applicable or unspecified; O99.344 Other mental disorders complicating childbirth; F32.9 Major depressive disorder, single episode, unspecified; F41.1 Generalized anxiety disorder
CPT/HCPCS: 36415; 51702; 59025; 85025; 85027; 86850; 86900; 96374; 99211; J2590; J2765; J2795; J3010; J7120; J7121

== ENCOUNTER → 2024-04-20 09:53 | Outpatient (BNVA) | payer OTHER, SELFPAY | PROVIDERS: Visit Provider Family Medicine | DX: F41.8 Other specified anxiety disorders (principal); D50.8 Other iron deficiency anemias; F41.1 Generalized anxiety disorder; F32.1 Major depressive disorder, single episode, moderate; K21.9 Gastro-esophageal reflux disease without esophagitis | CPT/HCPCS: 82728; 83550; 85025 ==

== ENCOUNTER 2024-04-21 07:39 | Outpatient (CLI) | payer OTHER, SELFPAY ==
[2024-04-21 08:07] LABS: Basophils % 0.6 %; Eosinophils # 0.3 10^3/uL (0.0-0.8); Eosinophils % 4.6 %; Hematocrit 37.5 % (36-47); Lymphocytes # 2.1 10^3/uL (0.8-4.8); Lymphocytes % 29.7 %; Mean Corpuscular HGB Conc 32.5 g/dL (30-55); Mean Corpuscular Hemoglobin 29.5 pg (27-33); Mean Corpuscular Volume 90.8 fl (85-98); Mean Platelet Volume 9.1 fL (7.4-10.4); Monocytes # 0.7 10^3/uL (0.2-0.9); Monocytes % 9.4 %; Neutrophils # 3.84 10^3/uL (1.8-7.7); Neutrophils % 55.4 %; Nucleated Red Blood Cells % 0 %; Platelet Count 344 10^3/cmm (157-399); Red Blood Count 4.13 10^6/uL (3.85-5.65); Red Cell Distribution Width 12.9 % (12.1-15.1); White Blood Count 6.93 10^3/uL (3.29-11.43)
[2024-04-21 08:28] LABS: Ferritin 10 ng/mL (15-150); Iron 60 ug/dL (37-145)
== END 2024-04-21 07:40 | disposition home or self-care (01) ==
PROVIDERS: PCP Family Medicine; Visit Provider Family Medicine
DX: D50.8 Other iron deficiency anemias (principal)
CPT/HCPCS: 36415; 82728; 83540; 85025

== ENCOUNTER 2024-05-18 08:13 | Outpatient (CLI) | payer OTHER, SELFPAY ==
--- NOTE | 2024-05-18 08:30 | MM_ITS ---
WS: [id number] BILATERAL SCREENING DIGITAL TOMOSYNTHESIS MAMMOGRAM WITH CAD HISTORY: screening. mother had breast CA COMPARISON: 10/04/2022 Bilateral CC and MLO views with tomosynthesis and synthetic mammography submitted. Computer aided det ection analyzed. Breast composition: There are scattered areas of fibroglandular density. No suspicious masses, microc alcifications or architectural distortion. Reidentified are 2 masses within the LEFT breast which wer e described on 10/04/2022. Lobulated mass in the lateral LEFT breast near 3:00 measures 1.3 x 1.8 x 1 .5 cm. There is an additional mass just medial to the nipple, anterior breast near 9:00 measuring 1.1 x 1.6 x 1.0 cm. Both of these masses have are unchanged in size. There is no distortion. Benign lymp h node upper outer quadrant LEFT breast. RIGHT breast is negative. MM/[place] [id number] IMPRESSION: BI-RADS: 2-Benign FOLLOW UP: 1 Year Follow-up
== END 2024-05-18 08:14 | disposition home or self-care (01) ==
LOC: RAD 08:14
PROVIDERS: PCP Family Medicine; Visit Provider Family Medicine
DX: Z12.31 Encounter for screening mammogram for malignant neoplasm of breast (principal); R92.323 Mammographic fibroglandular density, bilateral breasts; N63.23 Unspecified lump in the left breast, lower outer quadrant; N63.24 Unspecified lump in the left breast, lower inner quadrant
CPT/HCPCS: 77063; 77067

== ENCOUNTER 2024-06-11 09:25 | Outpatient (CLI) | payer OTHER, SELFPAY ==
[2024-06-11 12:37] LABS: Hepatitis B Surface Antigen Non-Reactive (Nonreactive); Hepatitis C Virus Antibody Non-Reactive (Nonreactive)
[2024-06-11 13:00] LABS: HIV 1 & 2 Antigen Non-Reactive (Non-Reactiv)
[2024-06-11 13:01] LABS: HIV 1 & 2 Antibody Non-Reactive (Non-Reactiv)
== END 2024-06-11 09:26 | disposition home or self-care (01) ==
LOC: LAB 09:30 → ER 09:51 → LAB 09:52
PROVIDERS: PCP Family Medicine; Visit Provider Family Medicine
DX: Z01.89 Encounter for other specified special examinations (principal)
CPT/HCPCS: 86706; 86803; 87340; 87806

== ENCOUNTER 2025-03-13 02:52 | Emergency (ER) | payer OTHER, SELFPAY ==
[2025-03-13 03:01] VITALS: BP 141/91; PULSE 78; RESP 20; TEMP 37.2; O2SAT 99; BMI 38.3
[2025-03-13 03:16] VITALS: BP 141/91; PULSE 72; RESP 17; O2SAT 100
[2025-03-13 03:38] LABS: Basophils # 0.1 10^3/uL (0.0-0.1); Basophils % 0.9 %; Eosinophils # 0.1 10^3/uL (0.0-0.8); Eosinophils % 1.1 %; Hematocrit 36.2 % (36-47); Lymphocytes # 1.4 10^3/uL (0.8-4.8); Lymphocytes % 18.4 %; Mean Corpuscular HGB Conc 31.5 g/dL (30-55); Mean Corpuscular Hemoglobin 25.8 pg (27-33); Mean Corpuscular Volume 81.9 fl (85-98); Monocytes # 0.5 10^3/uL (0.2-0.9); Neutrophils # 5.75 10^3/uL (1.8-7.7); Neutrophils % 73.3 %; Nucleated Red Blood Cells % 0 %; Platelet Count 376 10^3/cmm (157-399); Red Blood Count 4.42 10^6/uL (3.85-5.65); Red Cell Distribution Width 14.7 % (12.1-15.1); White Blood Count 7.84 10^3/uL (3.29-11.43)
[2025-03-13 03:40] LABS: Bilirubin Urine Negative (Negative); Blood Urine 1+ (Negative); Glucose Urine UA Negative (Normal); Ketones Urine Negative (Negative); Leukocyte Esterase Urine Negative (Negative); Nitrate Urine Negative (Negative); Protein Urine Negative (Negative); Specific Gravity, Urine 1.019 (1.005-1.030); Urine Appearance Clear (CLEAR); Urine Color Yellow (Yellow)
[2025-03-13 03:45] LABS: Bacteria Urine None Seen /hpf; Hyaline Casts Urine 0.81 /lpf; RBC Urine 21-50 /hpf (0-2); Squamous Epithelial Cell Urine 0-5 /hpf (0-5); WBC Urine 0-5 /hpf (0-5)
[2025-03-13 03:49] LABS: Add Urine Culture? No
[2025-03-13 03:51] LABS: Alanine Aminotransferase 17 U/L (0-33); Albumin Level 4.6 g/dL (3.5-5.2); Alkaline Phosphatase 77 U/L (35-105); Anion Gap 15.8 (5-19); Aspartate Amino Transferase 14 U/L (0-32); Blood Urea Nitrogen 12 mg/dL (6-20); Calcium 9.5 mg/dL (8.5-10.5); Carbon Dioxide 24 mmol/L (22-29); Chloride 102 mmol/L (98-107); Creatinine Clr Calc Pharmacy 152.4052; Globulin 3.1 g/dL (1.3-4.6); Glomerular Filtration Rate 98.9 mL/min (90-130); Glucose 126 mg/dL (65-115); Lipase 61 U/L (13-60); Osmolality Calculated 287 mOsm/kg (285-295); Potassium 3.8 mmol/L (3.5-5.1); Sodium 138 mmol/L (136-145); Total Bilirubin 0.3 mg/dL (0.15-1.2); Total Protein 7.7 g/dL (6.6-8.7)
--- NOTE | 2025-03-13 04:58 | ED_ITS ---
HPI - Nausea/Vomiting/Diarrhea 2 General: Chief complaint: Nausea/Vomiting/Diarrhea Stated complaint: N/V/D can't keep anything down Time Seen by Provider: 03/13/25 04:18 History of Present Illness: Jennifer, a patient with a history of pancreatitis, presents to the ER with vomiting and abdominal discomfort. The patient reports vomiting that started around midnight and continued constantly until about 3 AM. They also experienced some diarrhea, though no blood was noted in the stool. The patient became lightheaded during this episode. The abdominal discomfort is primarily located in the middle of the abdomen, with some pain also noted on the left side. The patient denies chest pain, shortness of breath, or fever. They report reaching a point where they couldn't drink water without getting sick, which is similar to their previous experiences with pancreatitis flares. This concern about potential pancreatitis prompted the ER visit. The patient denies recent illness among contacts. There is no mention of any recent stressors or life events contributing to the current symptoms. The impact on daily functioning is not explicitly stated, but the severity of symptoms was significant enough to warrant an ER visit. Related Data Home Medications ?Medication ?Instructions ?Recorded ?Confirmed vit no.95-ferrous 1 tab PO DAILY@08 11/12/20 10/06/24 fumarate 28 mg-folic acid 800 mcg tablet () ferrous sulfate 325 mg (65 mg 325 mg PO DAILY 07/30/23 10/06/24 iron) tablet,delayed release Previous Rx's ?Medication ?Instructions ?Recorded buspirone 5 mg tablet See Rx Instructions PO BID # 135 10/06/24 tabs sertraline 25 mg tablet (Zoloft) 25 mg PO DAILY #90 ta bs 02/18/25 Allergies Allergy/AdvReac Type Severity Reaction Status Date / Time Penicillins Allergy Family Verified 10/06/24 13:43 allergy---Keflex causes nausea ondansetron (From Zofran) AdvReac Severe migranes Verified 10/06/24 13:43 erythromycin base AdvReac Vomiting Verified 10/06/24 13:43 Review of Systems 2 General: Reports: 10 or more systems reviewed and unremarkable except in HPI and below PFSH ED 2 PFSH: Medical History Vaginal delivery Active labor at term Rh negative, antepartum GERD (gastroesophageal reflux disease) Generalized anxiety disorder Moderate major depression Anemia long history of anemia; worsened in ; managed with oral iron as of 06/26/23 Family history of breast cancer in female Acute pancreatitis Episode of acute pancreatitis at the age of 17 of undiagnosed origin. She has recovered completely and has no deficits Hypothyroid Diagnosed in November 2021 and is managed by Dr. Ruff-endocrinology no medication stable. Surgical History History of tonsillectomy At the age of 16 Family History Father No problems noted. Mother Diabetes Breast cancer Diagnosed at age 35 ER and GA POSITIVE Hypercholesteremia Hypertension Grandmother Uterine cancer Maternal- diagnosed in her 50s Family/Other Breast cancer Maternal aunt, diagnosed in her early 40s Mat great aunt Heart disease paternal uncle Thyroid disease maternal aunt Other Dementia Psychiatric illness Denies family history of Liver disease Colon cancer Ovarian cancer CAD (coronary artery disease) Aneurysm Autoimmune disease Chronic kidney disease (CKD) Bleeding disorder Lung disease Stroke Social History Smoking and tobacco/nicotine status: current every day tobacco/nicotine user Quit status (tobacco/nicotine): has quit using Alcohol intake: never Lives independently: Yes Marital status: Physical Exam 2 Const: COMMON NORMALS: no acute distress, patient oriented x3, healthy appearing, alert and well nourished HENMT: COMMON NORMALS: normocephalic HEAD & SCALP: normocephalic Eye: COMMON NORMALS: EOMs intact bilaterally Neck/C-Spine: COMMON NORMALS: full ROM and supple Resp: COMMON NORMALS: normal respiratory effort, No retractions and clear to auscultation bilaterally AUSCULTATION: clear to auscultation bilaterally Cardio: COMMON NORMALS: regular rate, regular rhythm, No gallops present (Cardio) and No murmurs present (Cardio) RATE: regular rate RHYTHM: r egular rhythm GI: COMMON NORMALS: Soft to palpation PALPATION: Yes Soft to palpation, Yes Tenderness to palpation present (GI) (Epigastric) Details: LLQ and No Rebound tenderness present Extremity: GENERAL: Yes normal exam except as noted Neuro: COMMON NORMALS: patient oriented x3 SENSORIUM/ORIENTATION: Yes alert Skin: COMMON NORMALS: no rashes or lesions noted GENERAL SKIN EXAM: no rashes or lesions noted Course 2 Vital Signs: Vital signs: Vital Signs Temperature 98.9 F 03/13/25 03:01 Pulse Rate 72 03/13/25 03:16 Respiratory Rate 17 03/13/25 03:16 Blood Pressure 141/91 03/13/25 03:16 Pulse Oximetry 100 03/13/25 03:16 Oxygen Delivery Me thod Room Air 03/13/25 03:16 MDM - Nausea/Vomiting/Diarrhea Medical Decision Making Patient presents with acute onset of vomiting and diarrhea, without blood in stool. No fever reported. Patient experienced lightheadedness. Initial concern was for pancreatitis due to history, but lipase was only minimally elevated (by one point), which is not clinically significant for pancreatitis. Physical exam revealed epigastric and left lower quadrant tenderness without significant guarding or rebound. Given the presentation and lab results, acute gastroenteritis of likely viral etiology is the most probable diagnosis. Plan: - Supportive care recommended - Patient declined prescription for ondansetron (Zofran), as she has some at home from previous - Advised that allowing the body to eliminate the virus can be beneficial, but symptomatic treatment is acceptable if discomfort is severe - Discharge home with instructions to return if symptoms worsen or unable to tolerate oral fluids Lab Data 03/13/25 03:18 03/13/25 03:18 Laboratory Results WBC 7.84 10^3/uL (3.29-11.43) 03/13/25 03:18 RBC 4.42 10^6/uL (3.85-5.65) 03/13/25 03:18 Hgb 11.40 g/dL (11.27-16.99) 03/13/25 03:18 Hct 36.2 % (36-47) 03/13/25 03:18 MCV 81.9 fl (85-98) L 03/13/25 03:18 MCH 25.8 pg (27-33) L 03/13/25 03:18 MCHC 31.5 g/dL (30-55) 03/13/25 03:18 RDW 14.7 % (12.1-15.1) 03/13/25 03:18 Plt Count 376 10^3/cmm (157-399) 03/13/25 03:18 MPV 9.0 fL (7.4-10.4) 03/13/25 03:18 Neut % (Auto) 73.3 % 03/13/25 03:18 Lymph % (Auto) 18.4 % 03/13/25 03:18 [place] % (Auto) 6.0 % 03/13/25 03:18 Eos % (Auto) 1.1 % 03/13/25 03:18 Baso % (Auto) 0.9 % 03/13/25 03:18 Neut # (Auto) 5.75 10^3/uL (1.8-7.7) 03/13/25 03:18 Lymph # (Auto) 1.4 10^3/uL (0.8-4.8) 03/13/25 03:18 [place] # (Auto) 0.5 10^3/uL (0.2-0.9) 03/13/25 03:18 Eos # (Auto) 0.1 10^3/uL (0.0-0.8) 03/13/25 03:18 Baso # (Auto) 0.1 10^3/uL (0.0-0.1) 03/13/25 03:18 Nucleated RBC % (auto) 0 % 03/13/25 03:18 Nucleated RBCs # 0.0 /100WBC 03/13/25 03:18 Sodium 138 mmol/L (136-145) 03/13/25 03:18 Potassium 3.8 mmol/L (3.5-5.1) 03/13/25 03:18 Chloride 102 mmol/L (98-107) 03/13/25 03:18 Carbon Dioxide 24 mmol/L (22-29) 03/13/25 03:18 Anion Gap 15.8 (5-19) 03/13/25 03:18 BUN 12 mg/dL (6-20) 03/13/25 03:18 Creatinine 0.7 mg/dL (0.5-0.9) 03/13/25 03:18 GFR Calculation 98.9 mL/min (90-130) 03/13/25 03:18 Glucose 126 mg/dL (65-115) H 03/13/25 03:18 Calculated Osmolality 287 mOsm/kg (285-295) 03/13/25 03:18 Calcium 9.5 mg/dL (8.5-10.5) 03/13/25 03:18 Total Bilirubin 0.3 mg/dL (0.15-1.2) 03/13/25 03:18 AST 14 U/L (0-32) 03/13/25 03:18 ALT 17 U/L (0-33) 03/13/25 03:18 Alkaline Phosphatase 77 U/L (35-105) 03/13/25 03:18 Total Protein 7.7 g/dL (6.6-8.7) 03/13/25 03:18 Albumin 4.6 g/dL (3.5-5.2) 03/13/25 03:18 Globulin 3.1 g/dL (1.3-4.6) 03/13/25 03:18 Lipase 61 U/L (13-60) H 03/13/25 03:18 Urine Color Yellow (Yellow) 03/13/25 03:22 Urine Appearance Clear (CLEAR) 03/13/25 03:22 Urine pH 8.0 (5-7) A 03/13/25 03:22 Ur Specific [place] 1.019 (1.005-1.030) 03/13/25 03:22 Urine Protein Negative (Negative) 03/13/25 03:22 Urine Glucose (UA) Negative (Normal) 03/13/25 03:22 Urine Ketones Negative (Negative) 03/13/25 03:22 Urine Blood 1+ (Negative) A 03/13/25 03:22 Urine Nitrate Negative (Negative) 03/13/25 03:22 Urine Bilirubin Negative (Negative) 03/13/25 03:22 Urine Urobilinogen 1.0 mg/dL (Negative) 03/13/25 03:22 Ur Leukocyte Esterase Negative (Negative) 03/13/25 03:22 Urine RBC 21-50 /hpf (0-2) H 03/13/25 03:22 Urine WBC 0-5 /hpf (0-5) 03/13/25 03:22 Ur Squamous Epith Cells 0-5 /hpf (0-5) 03/13/25 03:22 Amorphous Sediment Not Reportable 03/13/25 03:22 Urine Bacteria None seen /hpf (NONE) 03/13/25 03:22 Hyaline Casts 0.81 /lpf 03/13/25 03:22 No radiology studies performed this visit Discharge Plan Discharge Patient Disposition: Home Clinical Impression: Gastroenteritis Condition: Stable Prescriptions: No Action ferrous sulfate 325 mg (65 mg iron) tablet,delayed release (DR/EC) 325 mg PO DAILY buspirone 5 mg tablet See Rx Instructions PO BID Qty: 135 1RF Rx Instructions: take ONE tablet qAM take TWO tablet qPM orally twice a day; sertraline [Zoloft] 25 mg tablet 25 mg PO DAILY Qty: 90 0RF PNV cmb#95-ferrous fumarate-FA [] 28 mg iron- 800 mcg Tablet 1 tab PO DAILY@08 Discharge Orders: Discharge ED (Routine); Ordered 03/13/25 Ordered By: Santana Mariscal Referrals: Bon Gregory MD [Primary Care Provider] - Discharge Diet: Advance as tolerated Discharge Activity: Increase activity as tolerated Patient Instructions: Opioid Safety, Pain Management Activity Restrictions/Additional Instructions: Please return to the emergency department any new or worsening symptoms. Follow-up with your primary care physician for any persistent symptoms. Print Language: Citizen Of [place] Coding Level of Care Code ED Recruitment Advertising Manager for Kyree Smalls
[2025-03-13 05:17] VITALS: BP 120/58; PULSE 81; RESP 15; O2SAT 99
== END 2025-03-13 05:13 | disposition home or self-care (01) ==
PROVIDERS: Emergency Provider General Practice; PCP Family Medicine
DX: K52.9 Noninfective gastroenteritis and colitis, unspecified (principal); Z72.0 Tobacco use
CPT/HCPCS: 36415; 80053; 81001; 83690; 85025; 99283

== ENCOUNTER 2025-05-19 07:23 | Outpatient (CLI) | payer OTHER, SELFPAY ==
--- NOTE | 2025-05-19 08:00 | MM_ITS ---
WS: [id number] BILATERAL SCREENING DIGITAL TOMOSYNTHESIS MAMMOGRAM WITH CAD HISTORY: screening, Fx of Breast CA COMPARISON: 05/18/2024, 10/04/2022 Bilateral CC and MLO views with tomosynthesis and synthetic mammography submitted. Computer aided detection analyzed. Breast composition: There are scattered areas of fibroglandular density. No suspicious masses, microcalcifications or architectural distortion. Long-term stability of 3 masses in the LEFT breast. No interval change or enlargement. MM/MM scr BI tomosynthesis [id number] IMPRESSION: BI-RADS: 2 - Benign. FOLLOW UP: 1 Year Follow-up
== END 2025-05-19 07:24 | disposition home or self-care (01) ==
LOC: RAD 07:23
PROVIDERS: PCP Family Medicine; Visit Provider Family Medicine
DX: Z12.31 Encounter for screening mammogram for malignant neoplasm of breast (principal); N62 Hypertrophy of breast; R92.323 Mammographic fibroglandular density, bilateral breasts; N64.89 Other specified disorders of breast
CPT/HCPCS: 77063; 77067

== ENCOUNTER → 2025-09-08 13:17 | Outpatient (BNVA) | payer OTHER, SELFPAY | PROVIDERS: PCP Family Medicine; Visit Provider Nurse Practitioner Women's Health | DX: N92.6 Irregular menstruation, unspecified (principal); Z32.01 Encounter for pregnancy test, result positive; Z3A.01 Less than 8 weeks gestation of pregnancy | CPT/HCPCS: 36415; 81025; 84702; 86850; 86900 ==

== ENCOUNTER → 2025-10-18 08:22 | Outpatient (BNVA) | payer OTHER, SELFPAY | PROVIDERS: PCP Family Medicine; Visit Provider Nurse Practitioner Women's Health | DX: Z34.91 Encounter for supervision of normal pregnancy, unspecified, first trimester (principal); Z3A.11 11 weeks gestation of pregnancy; E03.9 Hypothyroidism, unspecified; Z68.39 Body mass index [BMI] 39.0-39.9, adult | CPT/HCPCS: 80307; 82950; 84315; 84439; 84443; 84481; 85025; 86592; 86762; 86803; 86850; 86900; 87086; 87340; 87491; 87591; 87661; 87806 ==

== ENCOUNTER → 2025-10-25 10:08 | Outpatient (BNVA) | payer OTHER, SELFPAY | PROVIDERS: PCP Family Medicine; Visit Provider Obstetrics & Gynecology | DX: O26.891 Other specified pregnancy related conditions, first trimester (principal); Z3A.12 12 weeks gestation of pregnancy; Z67.91 Unspecified blood type, Rh negative | CPT/HCPCS: 84315; 87624 ==